=== PATIENT | male | born 1935 | race Caucasian/White ===

== ENCOUNTER 2019-07-17 16:48 | Emergency (ER) | payer MEDICARE ==
[~2019-07-17] VITALS: Ht 180.3 cm; Wt 87.3 kg
[2019-07-17 16:55] VITALS: BP 150/75; Ht 180.3 cm; Wt 87.3 kg
[2019-07-17 17:56] LABS: SPECIFIC GRAVITY 1.015 (1.005-1.020)
[2019-07-17 17:57] LABS: BACTERIA FEW /hpf (NEGATIVE); BILIRUBIN NEGATIVE (NEGATIVE); GLUCOSE NEGATIVE (NEGATIVE); KETONE NEGATIVE (NEGATIVE); NITRITE NEGATIVE (NEGATIVE); RED CELLS - URINE 0-5 /hpf (0-5); UROBILINOGEN NORMAL (NORMAL); WHITE CELLS - URINE OCC /hpf (NEGATIVE)
[2019-07-17] MEDS ORDERED: CIPRO500 MG PO (18:00)
== END 2019-07-17 18:08 | disposition home or self-care (01) ==
LOC: D.ER 16:48
PROVIDERS: Family Medicine
DX: R33.9 Retention of urine, unspecified (principal); N41.9 Inflammatory disease of prostate, unspecified; I10 Essential (primary) hypertension

== ENCOUNTER 2019-07-22 12:14 | Emergency (ER) | payer MEDICARE, MEDICAID ==
[~2019-07-22] VITALS: Ht 180.3 cm; Wt 87.3 kg
[~2019-07-22 12:14] MED LIST: CIPRO500 MG PO
[2019-07-22 12:20] VITALS: BP 131/68; Ht 180.3 cm; Wt 87.3 kg
[2019-07-22] MEDS ORDERED: HTN MED? (12:22)
[2019-07-22] MEDS ORDERED: BLOOD THINNER (12:22)
== END 2019-07-22 14:21 | disposition home or self-care (01) ==
LOC: D.ER 12:14
DX: T83.84XA Pain due to genitourinary prosthetic devices, implants and grafts, initial encounter (principal); R33.9 Retention of urine, unspecified; I10 Essential (primary) hypertension

== ENCOUNTER 2019-07-22 21:39 | Emergency (ER) | payer MEDICARE, MEDICAID ==
[~2019-07-22] VITALS: Ht 180.3 cm; Wt 81.8 kg
[~2019-07-22 21:39] MED LIST changes: +BLOOD THINNER; +HTN MED?
[2019-07-22 21:46] VITALS: Ht 180.3 cm; Wt 81.8 kg
[2019-07-22 22:58] VITALS: BP 151/74
== END 2019-07-22 22:58 | disposition home or self-care (01) ==
LOC: D.ER 21:39
DX: N41.9 Inflammatory disease of prostate, unspecified (principal); R33.9 Retention of urine, unspecified; I10 Essential (primary) hypertension

== ENCOUNTER 2019-08-06 07:46 | Day surgery (SDC) | payer MEDICARE, MEDICAID ==
[~2019-08-06] VITALS: Ht 180.3 cm; Wt 78.9 kg
[~2019-08-06 07:46] MED LIST changes: -BLOOD THINNER; -HTN MED?; +LISINOPRIL PO; +plavix PO
[2019-08-06 08:57] LABS: BASOPHILS 0.5 % (0-2); EOSINOPHILS 4.6 % (0-7); HEMATOCRIT 35.8 % (42.0-54.0); HEMOGLOBIN 11.5 g/dL (13.5-17.5); LYMPHOCYTES 25.9 % (15-50); MCH 30.6 pg (26.0-34.0); MCHC 32.1 g/dL (31.0-37.0); MCV 95.2 fL (80.0-100.0); MEAN PLATELET VOLUME 9.6 fL (7.4-10.4); MONOCYTES 7.3 % (2-11); NEUTROPHILS 61.7 % (40-80); RBC 3.76 10x6/uL (4.20-6.10); WBC 5.9 10x3/uL (4.8-10.8)
[2019-08-06 09:09] LABS: ANION GAP 10.9 mmol/L (8-16); APTT 34.5 SECONDS (22.8-39.4); CALCIUM 8.3 mg/dL (8.5-10.1); CARBON DIOXIDE 27.1 mmol/L (21.0-32.0); CREATININE - SERUM 1.3 mg/dL (0.6-1.3); INR 1.13 (0.85-1.17); PROTIME 14.5 SECONDS (11.6-15.0)
[2019-08-06 09:11] LABS: PLATELET COUNT 251 10x3/uL (130-400)
[2019-08-06 09:29] VITALS: BP 113/62; Ht 180.3 cm; Wt 78.9 kg
--- NOTE | 2019-08-06 14:01 | NUR ---
FULL LIQUID TRAY TO ROOM
--- NOTE | 2019-08-06 14:59 | OP ---
PATIENT NAME: MARTHA ALMARAZ MEDICAL RECORD: [id number] :34 LOCATION:[facility] ADMISSION DATE: SURGEON: MAL CHEATHAM MD DATE OF OPERATION: 08/06/2019 SURGEON: Mal Cheatham MD ANESTHESIA: General anesthesia by Angélica Ireland CRNA. DIAGNOSIS: Bilateral hydroureteronephrosis, probable metastatic prostate cancer. PROCEDURE: Cystoscopy, left retrograde pyelogram, left ureteral stent insertion 6-Polish x 24 cm without string attached. FINDINGS: Cystoscopy shows bilateral lateral lobe hyperplasia with a tall bladder neck. The bladder is heavily trabeculated with diverticula. No bladder tumors were seen. The left ureteral orifice was seen. I could not find the right ureteral orifice due to hematuria. The left retrograde pyelogram shows hydroureteronephrosis down to the distal ureter. No filling defects were seen. BLOOD LOSS: Minimal. CLINICAL HISTORY: This is an 83-year-old male, who presented to his family physician's office with acute urinary retention. He had a Mann catheter placed. He had a serum PSA obtained. His PSA is over 200. I asked for a CT scan of the chest, abdomen and pelvis and this shows masses in the chest and the retroperitoneum. There are enlarged lymph nodes. There are also enlarged lymph nodes in the pelvis, especially along the right external iliac. Finally, there is sclerotic area in the iliac bone on the right side, all of this is consistent with metastatic prostate cancer. He is on Plavix and he has not had a prostate biopsy. He took his Plavix dose yesterday. The CT does show bilateral hydroureteronephrosis. He comes now to have attempted bilateral ureteral stent insertion on an emergent basis. He is not allergic to any medications. He was given ampicillin and sulbactam management information systems director to the OR. DESCRIPTION OF PROCEDURE: The patient was given induction of general anesthesia. He was then placed into the lithotomy position and prepped and draped. A 21-Polish cystoscope with 30-degree lens was used for visualization. He does not have a penile urethral stricture. He does have a very obstructive prostate. Going into the bladder, because of the heavy trabeculation of the bladder, it was difficult to find the ureteral orifice. I managed to find the left ureteral orifice. An open-ended ureteral catheter was inserted into the left ureteral orifice. Diluted contrast was injected for retrograde pyelogram. This showed quite severe hydroureteronephrosis on the left side. A Sensor wire was put in through the lumen of the ureteral catheter up to the renal pelvis. The ureteral catheter was then removed entirely. A 6-Polish x 24 cm stent was then inserted over the wire. Once the stent was in correct position, the wire was withdrawn entirely. The distal end of the stent was pushed in using the pusher. Fluoroscopy revealed that the stent is in good position. I tried for a long time to find the right ureteral orifice. However, the hematuria from his Plavix use and the prostatic tumor made it extremely difficult to find the right ureteral orifice. Eventually, I emptied his bladder and abandoned any further attempts. We will wait for the weekend to intervene without him being on Plavix. That way, his Plavix will have worn off on Saturday. We can then ask OPERATIVE REPORT [id number] MARTHA ALMARAZ interventional radiology to place a right nephrostomy tube and through their a right antegrade ureteral stent to relieve the prostatic obstruction. I will also have him come back to see me at [facility] to arrange for a prostate biopsy. TRANSINT:[id number] Voice Confirmation ID: [id number] DOCUMENT ID: [id number] MAL CHEATHAM MD at 1459 CC: [id number] DICTATION DATE: 08/06/19 1303 PROTOCOL MANAGER: 08/06/19 1338 [facility] [address] [place] [address]
--- NOTE | 2019-08-06 15:30 | NUR ---
1348-FULL LIQUID TRAY TO ROOM.VSS. DENIES PAIN
--- NOTE | 2019-08-06 15:31 | NUR ---
1440-DISCHARGE CRITERIA MET. REMOVED IV WITH CATH INTACT. DISPOSED INTO SHARPS,COVERED SITE WITH GUAZE,SECURED WITH MEDIPORE TAPE/ REVIEWED POST OPERATIVE INSTRUCTIONS AND FOLLOW UP APPOINTMENT. AWAITING FOR TO TRASPORT HOME
--- NOTE | 2019-08-06 15:32 | NUR ---
1500- ARRIVED TO FRONT ENTRANCE. ESCORTED DOWN VIA W/C.
[2019-08-07] MEDS ORDERED: FLOMAX0.4 MG PO (13:59)
== END 2019-08-06 15:00 | disposition home or self-care (01) ==
LOC: D.OPS 07:46
PROVIDERS: ATTEND Urology
DX: N13.30 Unspecified hydronephrosis (principal); C61 Malignant neoplasm of prostate

== ENCOUNTER 2019-08-10 07:03 | Day surgery (SDC) | payer MEDICARE, MEDICAID ==
[~2019-08-10] VITALS: Ht 180.3 cm; Wt 80.3 kg
--- NOTE | ~2019-08-10 | HEMODYNAMI ---
PATIENT:MARTHA ALMARAZ MEDICAL RECORD: [id number] : 33 LOCATION:[facility] ADMISSION DATE: 08/10/19 Generatedon:08/10/201913:52 Patient name: MARTHA ALMARAZ Patient #: [id number] SSN: : 1935 Date of study: 08/10/2019 Page: Of Hemodynamic Procedure Report Patient Data Patient Demographics Procedure consent was obtained First Name: MARTHA Gender: Male Last Name: RUFINA : 1935 Middle Initial: MARY Age: 83 year(s) Patient #: [id number] Race: Unknown Additional ID: [id number] Contact details [address]: [address] [place] [address] State: [place] [facility] [place]: [address] Past Medical History Allergies: No known allergies Admission Admission Data Admission Date: 08/10/2019 Admission Time: 7:03 Height (in.): 71 BSA: 2 (m2) Height (cm.): 180.34 BMI: 24.69 (kg/m2) Weight (lbs.): 177 Weight (kg.): 80.29 Procedure Procedure Types Cath Procedure Peripheral Cath Diagnostic Procedure Realtime Captioner Peripheral Procedures Nephro Nephrostomy w/ Ureteral Stent Procedure Description Procedure Date Procedure Date: 08/10/2019 Procedure Start Time: 13:09 Procedure Staff Name Function Adam Hennessy MD Performing Physician Monalisa Zapata RT Blindmaker Maty Russell RN Nurse Melina Carpio RN Nurse Manuel Gandara RT Scrub Procedure Data Cath Procedure Fluoroscopy Diagnostic fluoroscopy Total fluoroscopy Time: 7.7 time: 7.7 min min Diagnostic fluoroscopy Total fluoroscopy dose: 168 dose: 168 mGy mGy Contrast Material Contrast Material Type Amount (ml) Isovue 300 40 Procedure Medications Medication Administration Route Dosage unlisted medication I.V.P.B 1 g unlisted medication ml Heparin Flush Bag 1 bags (1000units/500ml NS) Lidocaine 1% 20 Hemodynamics Rest BSA: 2 (m2) O2 Consumption: Estimated: 234.97 (ml/min) O2 Consumption indexed: Estimated:117.48 (ml/min/m) Heart Rate: 81 (bpm) Snapshots Pre Cath Intra NCS Post Cath Vital Signs Time Heart Resp SPO2 etCO2 NIBP (mmHg) Rhythm Pain Sedation Rate (ipm) (%) (mmHg) Status Level (bpm) 12:52:23 77 15 100 4.5 170/85(128) NSR 0 (11) 10(A) , No pain 12:56:45 77 14 100 27.1 161/87(126) NSR 0 (11) 10(A) , No pain 13:01:07 75 14 100 27.2 157/82(130) NSR 0 (11) 10(A) , No pain 13:05:29 76 16 100 1.5 144/79(112) NSR 0 (11) 10(A) , No pain 13:09:45 75 17 100 16.6 139/77(109) NSR 0 (11) 10(A) , No pain 13:13:57 71 9 98 0 112/70(90) NSR 0 (11) 10(A) , No pain 13:18:05 70 6 99 12.8 105/64(81) NSR 0 (11) 10(A) , No pain 13:22:09 77 12 99 24.9 110/71(87) NSR 0 (11) 10(A) , No pain 13:26:57 83 12 99 25.6 131/84(99) NSR 0 (11) 10(A) , No pain 13:31:54 85 14 99 26.4 142/87(114) NSR 0 (11) 10(A) , No pain 13:36:06 76 15 99 18.8 143/92(115) NSR 0 (11) 10(A) , No pain 13:40:18 78 13 99 27.9 154/92(119) NSR 0 (11) 10(A) , No pain 13:44:37 81 12 99 21.9 140/81(107) NSR 0 (11) 10(A) , No pain 13:48:50 74 13 99 23.4 144/84(114) NSR 0 (11) 10(A) , No pain Medications Time Medication Route Dose Verified Delivered Reason Notes Effe ctiveness by by 12:57:32 CEFEPINE I.V.P.B 1 g Adam Rutledge Per Yvonne Hennessy RN physician 13:45:41 isovue-300 ml Adam Adam used for Minoo Hennessy MD procedure 13:46:59 Heparin Flush 1 Adam Medina used for Bag bags Minoo Hennessy MD procedure (1000units/500ml NS) 13:47:12 Lidocaine 1% 20ml Adam Medina vial Minoo Hennessy MD MD Procedure Log Time Note 12:20:13 Patient Height : 71 inches 12:20:18 Patient Weight : 177 lbs 12:20:47 Time tracking: Regular hours (M-F 7:00 - 5:00) 12:21:05 Plan of Care:Hemodynamics will remain stable., Cardiac rhythm will remain stable., Comfort level will be maintained., Respiratory function will remain adequate., Patient/ family verbilizes understanding of procedure., Procedure tolerated without complication., Recovers from procedure without complications.. 12:21:13 Patient received from Outpatients to IR Alert and oriented. Tansferred to table in Prone position. 12:21:16 Signed procedure consent form obtained from patient. 12:21:26 H&P Date Dictated: 08/10/2019 Within 30 days and on chart., H&P Addendum completed by physician on day of procedure. (MUST COMPLETE FOR ALL OUTPATIENTS). 12:21:31 Pre-procedure instructions explained to patient. 12:21:31 Pre-op teaching completed and patient verbalized understanding. 12:21:35 Family unavailable. 12:21:37 Patient NPO since Midnight. 12:21:41 Is the patient allergic to Iodine/contrast media? No. 12:21:52 Patient allergic to No known allergies 12:22:11 - 12:22:39 ----Pre-sedation anethsthesia assessment.----see anesthesia notes for monitoring of patient during procedure 12:23:06 - 12:23:10 Use device set IR Diagnostic 12:23:11 Tegaderm 4 x 4 (1626W) opened to sterile field. 12:23:12 Sterile Angiographic Pack opened to sterile field. 12:23:13 Bag Decanter (2002S) opened to sterile field. 12:23:37 KIT, INTRODUCER ACCUSTICK II W/C ([id number]) opened to sterile field. 12:23:38 CHIBA 22 X 15 needle opened to sterile field. 12:24:27 - 12:51:04 Vital chart was started 12:51:37 ECG and BP/O2 sat monitors applied to patient. 12:51:39 Baseline sample Acquired. 12:51:43 Full Disclosure recording started 12:51:45 - 12:56:16 Patient diabetic? No. 12:56:46 Left Renal was prepped with chlora-prep and draped in sterile fashion. 12:57:32 CEFEPINE 1 g I.V.P.B was administered by Maty Russell RN; Per physician; Verbal order read back and verified. 13:08:38 Physician arrived 13:08:40 --------ALL STOP TIME OUT------ 13:08:41 Final Timeout: patient, procedure, and site verified with staff and physician. All members of the team are in agreement. 13:09:13 Procedure started. 13:09:21 Local anesthetic to Left Renal area with Lidocaine 1% by Adam Hennessy MD.INITIAL ACCESS ONLY 13:16:12 NITINOL .018 80cm wire ([id number]) opened to sterile field. 13:22:02 GLIDE WIRE Angled Super Stiff 180cm (NA2944) opened to sterile field. 13:22:03 GLIDE CATHETER 5FR ANGLED 65cm (CG507) opened to sterile field. 13:23:35 AMPLATZ Super stiff 180cm wire ([id number]) opened to sterile field. 13:34:36 BAG, DRAINAGE EMPTY 600ML W/KRISTAL (TRR989) opened to sterile field. 13:34:37 STOPCOCK 3-Way Large Bore ([id number]) opened to sterile field. 13:35:04 Abscession 8Fr drainage catheter ([id number]) opened to sterile field. 13:35:42 Blissfield Sci 8FR.X 24CM Ureteral Stent ([id number]) opened to sterile field. 13:41:36 Procedure ended.(Physican Out) 13:42:24 Fluoroscopy time 07.70 minutes. 13:42:34 Fluoroscopy dose: 168 mGy 13:42:34 Flurop Dose total: 168 13:42:48 Contrast amount:Isovue 300 40ml. 13:44:10 Procedure and supply charges have been captured, reviewed, submitted an d are correct. 13:45:41 isovue-300 ml was administered by Adam Hennessy MD; used for procedure; Verbal order read back and verified. 13:46:59 Heparin Flush Bag (1000units/500ml NS) 1 bags was administered by Adam Hennessy MD; used for procedure; Verbal order read back and verified. 13:47:12 Lidocaine 1% 20ml vial was administered by Adam Hennessy MD; ; Verbal order read back and verified. 13:52:08 Report given to Outpatients. 13:52:31 Vital chart was stopped Device Usage Item Name Manufacture Quantity Catalog Hospital Part Current Minima l Lot# / Number Charge Number Stock Stock Serial# Code Tegaderm 4 x 3M 1 [id number] 5 4 (1626W) Sterile Cardinal 1 [id number] 016522 822189 5 Angiographic Health Pack Bag Decanter Microtek 1 748979 19658 132880 5 (2002S) Medical Inc. KIT, [place] 1 [id number] 636147 468114 688841 5 INTRODUCER Scientific ACCUSTICK II W/C ([id number]) CHIBA 22 X [facility] 1 K88241 532607 766651 5 [id number] 15 needle NITINOL .018 Medtronic 1 [id number] 904285 244014 5 80cm wire ([id number]) GLIDE WIRE Terumo 1 LY7481 980076 712826 5 Angled Super Stiff 180cm (NB3649) GLIDE Terumo 1 CG507 972410 150447 5 CATHETER 5FR ANGLED 65cm (CG507) AMPLATZ [place] 1 [id number] 980383 447057 943792 5 Super stiff Scientific 180cm wire ([id number]) BAG, [facility] Medical 1 JFD781 710781 660098 026426 5 DRAINAGE EMPTY 600ML W/KRISTAL (GLL991) STOPCOCK [facility] 1 T45799 840917 6057 204321 5 [id number] 3-Way Large Bore (K70053) Abscession Angiodynamics 1 [id number] 562444 905098 592900 5 8Fr drainage catheter ([id number]) Blissfield Sci [place] 1 [id number] 079930 895508 463029 5 8FR.X 24CM Scientific Ureteral Stent ([id number]) Signature Audit [place] Stage Time Signature Unsigned Intra-Procedure 08/10/2019 Monalisa Zapata 1:52:27 PM RT(R) [id number] [place] [address]
[~2019-08-10 07:03] MED LIST changes: +FLOMAX0.4 MG PO
[2019-08-10 07:41] LABS: BASOPHILS 0.3 % (0-2); EOSINOPHILS 3.7 % (0-7); HEMATOCRIT 38.7 % (42.0-54.0); HEMOGLOBIN 12.4 g/dL (13.5-17.5); LYMPHOCYTES 23.3 % (15-50); MCH 30.6 pg (26.0-34.0); MCV 95.6 fL (80.0-100.0); MEAN PLATELET VOLUME 9.4 fL (7.4-10.4); MONOCYTES 7.1 % (2-11); NEUTROPHILS 65.6 % (40-80); PLATELET COUNT 230 10x3/uL (130-400); RBC 4.05 10x6/uL (4.20-6.10); RDW 13.9 % (11.5-14.5); WBC 5.9 10x3/uL (4.8-10.8)
[2019-08-10 07:48] LABS: APTT 29.5 SECONDS (22.8-39.4); INR 1.06 (0.85-1.17); PROTIME 13.8 SECONDS (11.6-15.0)
[2019-08-10 07:49] LABS: CALCIUM 8.5 mg/dL (8.5-10.1); CARBON DIOXIDE 27.2 mmol/L (21.0-32.0); CREATININE - SERUM 1.2 mg/dL (0.6-1.3); POTASSIUM - SERUM 4.2 mmol/L (3.5-5.1)
[2019-08-10 08:46] VITALS: BP 121/72; Ht 180.3 cm; Wt 80.3 kg
--- NOTE | 2019-08-10 14:40 | NUR ---
CALL PLACED TO DR CHEATHAM REGARDING CONCERN ABOUT PATIENT AND SPOUSE BEING ABLE TO CARE FOR ROWE AND NEPHROSTOMY TUBE AT HOME, REPORTED TO DR CHEATHAM THAT PATIENT CAME IN TO OUTPATIENT THIS MORNING WITH ROWE BAG OVERFUL AND PATIENT REPORTED THAT HE HADN'T EMPTIED ROWE BAG ALL WEEKEND. SUGGESTED TO DR CHEATHAM THAT HOME HEALTH MAY BE NEEDED. DR CHEATHAM STATES "I CAN HANDLE THAT WHEN PATIENT COMES TO SEE ME THIS SATURDAY. HE CAN MAKE IT UNTIL THEN."
--- NOTE | 2019-08-10 16:50 | NUR ---
SPOUSE ARRIVES AND DEMONSTRATION AND EDUCATION ARE GIVEN REGARDING ROWE CARE AND PERC NEPH TUBE CARE. PATIENT ARRIVED TODAY TO DEPARTMENT WITH ROWE CATH BUT HAD NOT EMPTIED ROWE CATH ALL WEEKEND SO FURTHER EDUCATION WAS IN ORDER. WRITTEN EDUCATION AND DEMONSTRATION GIVEN REGARDING ROWE CATH CARE. DEMONSTRATED TO SPOUSE HOW TO FLUSH PERC NEPH TUBE AND INSTRUCTIONS GIVEN TO FLUSH TWICE DAILY. WRITTEN INSTRUCTIONS REVIEWED AND GIVEN REGARDING RETURNING ON Saturday08/12/19 FOR STENT PROCEDURE HERE AT [facility]. SPOUSE EXPRESSES UNDERSTANDING OF ALL INSTRUCTIONS. LEFT FOREARM PIV DC'D WITH TIP INTACT. PATIENT DRESSING IN PERSONAL CLOTHING
--- NOTE | 2019-08-10 17:32 | NUR ---
DISCHARGED HOME VIA WHEELCHAIR TO PRIVATE VEHICLE WITH SPOUSE
--- NOTE | 2019-08-11 17:59 | OP ---
PATIENT NAME: MARTHA ALMARAZ MEDICAL RECORD: [id number] :33 LOCATION:.[facility] ADMISSION DATE: SURGEON: MAL CHEATHAM MD DATE OF OPERATION: 08/10/2019 SURGEON: Mal Cheatham MD ANESTHESIA: TIVA by Milady Krishnamurthy CRNA. DIAGNOSES: Elevated PSA, metastatic cancer, urinary retention. PROCEDURE: Transrectal ultrasound and prostate biopsy. FINDINGS: On transrectal ultrasound, 73 gram irregular nodular prostate with extensive hypoechoic areas throughout. On digital rectal examination, he has a hard nodular fixed prostate. CLINICAL HISTORY: This is an 83-year-old male, who was found to be in urinary retention. He had a Mann catheter placed by his primary care doctor. His PSA is elevated at 205. A CT scan of the chest, abdomen and pelvis shows a left pulmonary nodule 1.5 cm in size which may be metastatic disease. There is also extensive retroperitoneal and retrohilar lymphadenopathy. This is causing bilateral hydroureteronephrosis. He is on Plavix for previous stroke. Last week, I managed to place a left ureteral stent. He now comes today to have a right ureteral stent placed by interventional radiology in an antegrade fashion through a nephrostomy tube. I will also be performing a prostate biopsy today. We need tissue diagnosis for him to get treatment of his extensive metastatic prostate cancer. He was given Ancef cardiopulmonary supervisor to the OR. DESCRIPTION OF PROCEDURE: The patient was given IV sedation. He was placed in the lithotomy position. Digital rectal examination was done and I found a hard nodular fixed prostate very suggestive of prostate cancer. The transrectal ultrasound probe was then introduced. It was very difficult to identify the outline of the prostate as it is extremely hypoechoic throughout. We estimate of the prostate size at 73 grams. Sextant with biopsies were obtained with at least 3 specimens from each sextant. Once all the specimens were obtained, then the patient's Mann catheter was replaced with a new one. The patient today will later go to interventional radiology to have a right nephrostomy tube inserted in through the nephrostomy tube and antegrade right ureteral stent inserted. TRANSINT:[id number] Voice Confirmation ID: [id number] DOCUMENT ID: [id number] MAL CHEATHAM MD at 7405 CC: [id number] DICTATION DATE: 08/10/19 2505 [place] LAP MACHINE TENDER: 08/10/19 1407 [facility] [place] 08/10/19 [place] [id number] [place] [address]
== END 2019-08-10 17:32 | disposition home or self-care (01) ==
LOC: D.OPS 07:03 → EDSTATUS 09:30 → D.OPS 09:30 → D.RAD 13:00 → D.OPS 17:32
PROVIDERS: General Practice; ATTEND Urology
DX: N13.30 Unspecified hydronephrosis (principal); C61 Malignant neoplasm of prostate; R97.20 Elevated prostate specific antigen [PSA]; R33.9 Retention of urine, unspecified

== ENCOUNTER 2019-08-12 09:14 | Outpatient (CLI) | payer MEDICARE, MEDICAID ==
[~2019-08-12] VITALS: Ht 180.3 cm; Wt 78.2 kg
--- NOTE | ~2019-08-12 | HEMODYNAMI ---
PATIENT:MARTHA ALMARAZ MEDICAL RECORD: [id number] : 33 LOCATION:[facility] ADMISSION DATE: 08/12/19 Generatedon:08/12/201912:36 Patient name: MARTHA ALMARAZ Patient #: [id number] SSN: : 1935 Date of study: 08/12/2019 Page: Of Hemodynamic Procedure Report Patient Data Patient Demographics Procedure consent was obtained First Name: MARTHA Gender: Male Last Name: RUFINA : 1935 [facility] Initial: MARY Age: 83 year(s) Patient #: [id number] Race: Unknown Additional ID: [id number] Contact details Address: [address] [place] [address] State: [place] City: [facility] Zip code: [address] Past Medical History Allergies: No known allergies Admission Admission Data Admission Date: 08/12/2019 Admission Time: 9:14 Height (in.): 71 BSA: 1.98 (m2) Height (cm.): 180.34 BMI: 23.99 (kg/m2) Weight (lbs.): 172 Weight (kg.): 78.02 Procedure Procedure Types Cath Procedure Peripheral Cath Diagnostic Procedure Graduate Teaching Associate Peripheral Procedures Nephro Nephrostogram Thru Existing Procedure Description Procedure Date Procedure Date: 08/12/2019 Procedure Start Time: 12:20 Procedure Staff Name Function Adam Hennessy MD Performing Physician Monalisa Zapata RT Gang Miner Melina Carpio RN Nurse Procedure Data Cath Procedure Fluoroscopy Diagnostic fluoroscopy Total fluoroscopy Time: 1.4 time: 1.4 min min Diagnostic fluoroscopy Total fluoroscopy dose: 68 dose: 68 mGy mGy Contrast Material Contrast Material Type Amount (ml) Isovue 300 10 Hemodynamics Rest BSA: 1.98 (m2) O2 Consumption: Estimated: 238.74 (ml/min) O2 Consumption indexed : Estimated:120.58 (ml/min/m) Heart Rate: 89 (bpm) Snapshots Pre Cath Intra NCS Post Cath Vital Signs Time Heart Resp SPO2 etCO2 NIBP (mmHg) Rhythm Pain Sedation Rate (ipm) (%) (mmHg) Status Level (bpm) 12:20:01 91 20 97 0 131/79(105) NSR 0 (11) 10(A) , No pain 12:24:12 89 25 0 128/78(102) NSR 0 (11) 10(A) , No pain 12:28:26 85 17 0 134/74(98) NSR 0 (11) 10(A) , No pain 12:32:26 0 No Cuff NSR 0 (11) 10(A) , No pain Procedure Log Time Note 10:57:56 Patient Height : 71 inches 10:58:00 Patient Weight : 172 lbs 10:58:22 Use device set IR Diagnostic 10:58:24 Sterile Angiographic Pack opened to sterile field. 10:58:25 Bag Decanter (2002S) opened to sterile field. 10:58:26 Tegaderm 4 x 4 (1626W) opened to sterile field. 12:02:44 - 12:02:47 Time tracking: Regular hours (M-F 7:00 - 5:00) 12:03:10 Plan of Care:Hemodynamics will remain stable., Cardiac rhythm will remain stable., Comfort level will be maintained., Respiratory function will remain adequate., Patient/ family verbilizes understanding of procedure., Procedure tolerated without complication., Recovers from procedure without complications.. 12:03:18 Patient received from Outpatients to IR Alert and oriented. Tansferred to table in Prone position. 12:03:21 Signed procedure consent form obtained from patient. 12:03:28 H&P Date Dictated: 08/12/2019 Within 30 days and on chart., H&P Addendum completed by physician on day of procedure. (MUST COMPLETE FOR ALL OUTPATIENTS). 12:03:30 Pre-procedure instructions explained to patient. 12:03:31 Pre-op teaching completed and patient verbalized understanding. 12:03:33 Family unavailable. 12:03:35 Patient NPO since Midnight. 12:03:45 Patient allergic to No known allergies 12:03:48 - 12:18:56 ECG and BP/O2 sat monitors applied to patient. 12:18:57 Vital chart was started 12:18:59 Baseline sample Acquired. 12:19: Full Disclosure recording started 12::02 - 12::18 Right Renal was prepped with chlora-prep and draped in sterile fashion. 12::22 - 12::25 Physician arrived 12:: --------ALL STOP TIME OUT------ ::28 Final Timeout: patient, procedure, and site verified with staff and physician. All members of the team are in agreement. ::37 Fire Safety Assessment: A--An alcohol-based skin anteseptic being used preoperatively. 12:20:13 Procedure started. 12:32:59 nephrostomy tube removed 12:33:04 Procedure ended.(Physican Out) ::26 Fluoroscopy time 01.40 minutes. :33:31 Fluoroscopy dose: 68 mGy 12:33:31 Flurop Dose total: 68 12:33:37 Contrast amount:Isovue 300 10ml. 12:33:53 Procedure and supply charges have been captured, reviewed, submitted an d are correct. 12:36:17 Report given to Outpatients. 12:36:49 Vital chart was stopped Device Usage Item Name Manufacture Quantity Catalog Hospital Part Current Minimal Lot# / Number Charge Number Stock Stock Serial# Code Sterile Cardinal 1 [id number] 5 Angiographic Health Pack Bag Decanter Microtek 1 [id number] 34483 [id number] 5 () 1DayLater Inc. Tegaderm 4 x 3M 1 1626W [id number] 951584 [id number] 5 4 (1626W) Signature Audit [place] Stage Time Signature Unsigned Intra-Procedure 08/12/2019 Monalisa Zapata 12:36:45 PM RT(R) [facility] [address] [place] [address]
[2019-08-12 09:35] LABS: BASOPHILS 0.2 % (0-2); EOSINOPHILS 4.2 % (0-7); HEMATOCRIT 38.7 % (42.0-54.0); HEMOGLOBIN 12.5 g/dL (13.5-17.5); IMMATURE GRANULOCYTES 0.2 % (0-5); MCHC 32.3 g/dL (31.0-37.0); MEAN PLATELET VOLUME 9.3 fL (7.4-10.4); MONOCYTES 7.8 % (2-11); NEUTROPHILS 67.6 % (40-80); PLATELET COUNT 204 10x3/uL (130-400); RBC 4.03 10x6/uL (4.20-6.10); WBC 6.2 10x3/uL (4.8-10.8)
[2019-08-12 09:48] LABS: APTT 28.7 SECONDS (22.8-39.4); INR 1.05 (0.85-1.17); PROTIME 13.6 SECONDS (11.6-15.0)
[2019-08-12 09:50] LABS: CALC OSMOLALITY 278 mosm/kg (275-300); CALCIUM 8.6 mg/dL (8.5-10.1); CARBON DIOXIDE 28.1 mmol/L (21.0-32.0); CHLORIDE - SERUM 102 mmol/L (98-107); GLUCOSE 113 mg/dL (74-106); SODIUM 139 mmol/L (136-145); UREA NITROGEN 12 mg/dL (7-18); eGFR NON AFRICAN AMERICAN 76 mL/min (90-120)
[2019-08-12 10:25] VITALS: BP 114/67; Ht 180.3 cm; Wt 78.2 kg
--- NOTE | 2019-08-12 13:29 | NUR ---
1300-NO SEDATION. REMOVED IV WITH CATH INTACT,DISPOSED INTO SHARPS.COVERED WITH GUAZE AND MEDIPORE TAPE.
--- NOTE | 2019-08-12 13:30 | NUR ---
1310-ASSISTED PT TO DRESS. ROWE PATENT DRAINING EVANS RED URINE. ABLE TO CARE FOR ROWE, HAS HAD FOR MORE THAN 2 WEEKS. REVIEWED POST OPERATIVE INSTRUCTIONS.
--- NOTE | 2019-08-12 13:31 | NUR ---
1315-ESFCORTED OUT VIA W/C WITH SPOUSE AWAITING TO DRIVE HOME
== END 2019-08-12 13:15 | disposition home or self-care (01) ==
LOC: D.SP 09:14 → D.RAD 13:00 → D.SP 13:00
PROVIDERS: ATTEND General Practice
DX: C61 Malignant neoplasm of prostate (principal); N13.5 Crossing vessel and stricture of ureter without hydronephrosis

== ENCOUNTER → 2019-08-14 08:29 | Outpatient (CLI) | payer MEDICARE, MEDICAID ==
[2019-08-12 10:25] VITALS: BMI 24.0
== END | disposition home or self-care (01) ==
LOC: D.NM 08:29
PROVIDERS: ATTEND Urology
DX: C61 Malignant neoplasm of prostate (principal)

== ENCOUNTER → 2019-09-05 17:00 | Outpatient (CLI) | payer MEDICARE, MEDICAID ==
[2019-08-12 10:25] VITALS: BMI 24.0
[2019-09-05 19:25] LABS: BACTERIA MANY /hpf (NEGATIVE); BILIRUBIN NEGATIVE (NEGATIVE); EPITHELIAL CELLS OCC /hpf (0-5); GLUCOSE NEGATIVE (NEGATIVE); KETONE NEGATIVE (NEGATIVE); NITRITE NEGATIVE (NEGATIVE); UROBILINOGEN NORMAL (NORMAL); WHITE CELLS - URINE >50 /hpf (NEGATIVE)
== END | disposition home or self-care (01) ==
LOC: D.LABREF 17:00
PROVIDERS: ATTEND Urology
DX: N39.0 Urinary tract infection, site not specified (principal)

== ENCOUNTER → 2019-09-10 11:41 | Outpatient (CLI) | payer MEDICARE, MEDICAID ==
[2019-08-12 10:25] VITALS: BMI 24.0
[2019-09-10 14:45] LABS: BACTERIA FEW /hpf (NEGATIVE); EPITHELIAL CELLS RARE /hpf (0-5); RED CELLS - URINE >50 /hpf (0-5)
== END | disposition home or self-care (01) ==
LOC: D.LABREF 11:41
PROVIDERS: ATTEND Urology
DX: C61 Malignant neoplasm of prostate (principal); N39.0 Urinary tract infection, site not specified

== ENCOUNTER 2019-11-04 08:00 | Outpatient (CLI) | payer MEDICARE, MEDICAID ==
[2019-08-12 10:25] VITALS: BMI 24.0
[2019-11-05 12:50] LABS: BILIRUBIN NEGATIVE (NEGATIVE); GLUCOSE NEGATIVE (NEGATIVE); KETONE NEGATIVE (NEGATIVE); NITRITE POSITIVE (NEGATIVE); SPECIFIC GRAVITY 1.015 (1.005-1.020); UROBILINOGEN NORMAL (NORMAL); WHITE CELLS - URINE 25-50 /hpf (NEGATIVE)
[2019-11-05 12:51] LABS: AMORPHOUS SEDIMENT <1+ /lpf (NONE SEEN); BACTERIA MANY /hpf (NEGATIVE); EPITHELIAL CELLS 0-5 /hpf (0-5); GRANULAR CAST OCC /lpf (NONE SEEN); RED CELLS - URINE 25-50 /hpf (0-5)
== END 2019-11-04 08:01 | disposition home or self-care (01) ==
LOC: D.LABREF 08:00
PROVIDERS: ATTEND Urology
DX: N39.0 Urinary tract infection, site not specified (principal)

== ENCOUNTER 2019-12-10 06:10 | Day surgery (SDC) | payer MEDICARE, MEDICAID ==
[2019-12-07 15:09] LABS: BASOPHILS 0.3 % (0-2); EOSINOPHILS 3.9 % (0-7); HEMATOCRIT 32.5 % (42.0-54.0); HEMOGLOBIN 10.5 g/dL (13.5-17.5); LYMPHOCYTES 29.6 % (15-50); MCH 29.3 pg (26.0-34.0); MCHC 32.3 g/dL (31.0-37.0); MCV 90.8 fL (80.0-100.0); MEAN PLATELET VOLUME 8.6 fL (7.4-10.4); MONOCYTES 5.9 % (2-11); NEUTROPHILS 60.3 % (40-80); PLATELET COUNT 313 10x3/uL (130-400); RBC 3.58 10x6/uL (4.20-6.10); RDW 15.6 % (11.5-14.5); WBC 7.2 10x3/uL (4.8-10.8)
[2019-12-07 15:23] LABS: APTT 31.6 SECONDS (22.8-39.4); INR 1.02 (0.85-1.17); PROTIME 13.3 SECONDS (11.6-15.0)
[2019-12-07 15:29] LABS: ANION GAP 13.5 mmol/L (8-16); CALCIUM 7.4 mg/dL (8.5-10.1); CARBON DIOXIDE 24.9 mmol/L (21.0-32.0); CREATININE - SERUM 1.5 mg/dL (0.6-1.3); POTASSIUM - SERUM 3.4 mmol/L (3.5-5.1)
[~2019-12-10] VITALS: Ht 175.3 cm; Wt 72.1 kg
[~2019-12-10 06:10] MED LIST changes: +XTANDI40 MG PO
[2019-12-10 06:34] VITALS: BP 109/67; Ht 175.3 cm; Wt 72.1 kg
--- NOTE | 2019-12-10 09:29 | NUR ---
SCOPE PATCH BEHIND RT EAR ON ADMIT
--- NOTE | 2019-12-10 10:40 | NUR ---
PT ABLE TO URINATE 150ML PINK TINGED URINE. PT DC INSTRUCTIONS REVIEWED AT THIS TIME. PT AND FAMILY VERBALIZE UNDERSTANDING. IV REMOVED AT THIS TIME, INTACT, NO REDNESS OR SWELLING NOTED AT SITE.
--- NOTE | 2019-12-10 10:45 | NUR ---
PT LEAVING OPS AT THIS TIME VIA EC, NAD NOTED.
--- NOTE | 2019-12-11 12:55 | OP ---
PATIENT NAME: MARTHA ALMARAZ MEDICAL RECORD: [id number] :33 LOCATION:D.OPS ADMISSION DATE: SURGEON: MAL CHEATHAM MD DATE OF OPERATION: 12/10/2019 SURGEON: Mal Cheatham MD ANESTHESIA: TIVA by Nigel Diaz CRNA. DIAGNOSES: Metastatic prostate cancer with bilateral hydronephrosis, urinary tract infection. PROCEDURES: Cystoscopy, removal of old ureteral stents, bilateral retrograde pyelograms, exchange with new 6-Uzbek x 24 cm ureteral stents bilaterally with no strings attached. FINDINGS: Heavily trabeculated bladder. On retrograde pyelograms, there are bilateral distal ureteral strictures. No bladder tumors are seen. BLOOD LOSS: None. CLINICAL HISTORY: This is an 84-year-old male with metastatic prostate cancer. 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 He has had bilateral ureteral stents for some time. Recently, he developed a urinary tract infection for which we have started him on the appropriate antibiotics. He comes now to have the stents changed as the current stents are contaminated. He was given gentamicin IV railroad conductor to the OR. DESCRIPTION OF PROCEDURE: The patient was given IV sedation. He was placed into lithotomy position and prepped and draped. Cystoscopy was performed using a 21-Uzbek scope with 30-degree lens. The prostate is not obstructive as he has had an UroLift procedure done. He was previously in urinary retention. Grasping forceps were used and the old stents were removed entirely. We then introduced a 5-Uzbek open-ended ureteral catheter into the left ureteral orifice. Diluted contrast was used for a retrograde pyelogram. This showed stricturing of the distal ureter. A Sensor wire was passed through the lumen of the ureteral catheter into the renal pelvis. Once the wire was in position, the ureteral catheter was removed entirely. Over the wire, we inserted the 6-Uzbek x 24-cm stent. Once the stent was in correct position, the wire was withdrawn entirely. The distal end of the stent was pushed into the bladder using a pusher. The same procedure was repeated on the right side. At the end of the procedure, the bladder was emptied through the cystoscope sheath and the scope was removed. I will see the patient in followup in 2-3 weeks at [facility] to check to see whether the infection is completely cleared. NTS:[id number] Voice Confirmation ID: [id number] DOCUMENT ID: [id number] OPERATIVE REPORT [id number] MARTHA ALMARAZ ROBERT S MD at 1255 CC: [id number] DICTATION DATE: 12/10/19908 SUPERVISOR NET MAKING: 12/10/191906 [facility] 12/10/19 [place] [id number] [place] [id number]
== END 2019-12-10 10:45 | disposition home or self-care (01) ==
LOC: D.OPS 06:10 → D.PAN 08:15 → D.OPS 08:15
PROVIDERS: Anesthesiology; ATTEND Urology
DX: C61 Malignant neoplasm of prostate (principal); N13.30 Unspecified hydronephrosis; N39.0 Urinary tract infection, site not specified; R33.8 Other retention of urine; R15.9 Full incontinence of feces

== ENCOUNTER 2020-07-09 21:31 | Inpatient (IN) | payer MEDICARE, MEDICAID ==
[~2020-07-09] VITALS: Ht 180.3 cm; Wt 60.5 kg
[~2020-07-09 21:31] MED LIST changes: +DIFLUCAN150 MG PO; +PROTONIX40 MG PO
[2020-07-09 22:00] LABS: BASOPHILS 0.1 % (0-2); EOSINOPHILS 0.6 % (0-7); HEMATOCRIT 32.6 % (42.0-54.0); HEMOGLOBIN 10.9 g/dL (13.5-17.5); IMMATURE GRANULOCYTES 0.4 % (0-5); LYMPHOCYTE ABS# 2.65 10x3/uL (1.32-3.57); LYMPHOCYTES 26.8 % (15-50); MCH 30.4 pg (26.0-34.0); MCHC 33.4 g/dL (31.0-37.0); MCV 90.8 fL (80.0-100.0); MEAN PLATELET VOLUME 8.8 fL (7.4-10.4); MONOCYTES 4.2 % (2-11); NEUTROPHIL ABS# 6.71 10x3/uL (1.78-5.38); NEUTROPHILS 67.9 % (40-80); PLATELET COUNT 284 10x3/uL (130-400); RBC 3.59 10x6/uL (4.20-6.10); RDW 16.1 % (11.5-14.5); WBC 9.9 10x3/uL (4.8-10.8)
[2020-07-09 22:08] LABS: INR 1.06 (0.85-1.17); PROTIME 12.7 SECONDS (11.6-15.0)
[2020-07-09 22:09] LABS: APTT 26.6 SECONDS (22.8-39.4)
[2020-07-09 22:25] LABS: ALBUMIN 2.3 g/dL (3.4-5.0); ALKALINE PHOSPHATASE 119 U/L (30-120); ALT (SGPT) 14 U/L (10-68); CALC OSMOLALITY 271 mosm/kg (275-300); CALCIUM 8.3 mg/dL (8.5-10.1); CHLORIDE - SERUM 98 mmol/L (98-107); CREATINE KINASE 23 UL (21-232); CREATININE - SERUM 1.6 mg/dL (0.6-1.3); GLUCOSE 175 mg/dL (74-106); MAGNESIUM - SERUM 2.4 mg/dL (1.8-2.4); POTASSIUM - SERUM 2.9 mmol/L (3.5-5.1); PRO BNP 374 pg/mL (0-450); PROTEIN - SERUM 6.8 g/dL (6.4-8.2); SODIUM 133 mmol/L (136-145); THYROID STIMULATING HORMONE 3.12 uIU/mL (0.36-3.74); TROPONIN-I < 0.017 ng/mL (0.000-0.060); UREA NITROGEN 17 mg/dL (7-18); eGFR NON AFRICAN AMERICAN 44 mL/min (90-120)
[2020-07-10 00:30] VITALS: BP 103/48
[2020-07-10 03:03] VITALS: BMI 19.4
[2020-07-10 03:12] LABS: CKMB 0.1 U/L (0.0-3.6); CREATINE KINASE 24 UL (21-232)
[2020-07-10 03:15] LABS: TROPONIN-I < 0.017 ng/mL (0.000-0.060)
--- NOTE | 2020-07-10 03:18 | NUR ---
PT LAYING SUPINE IN BED. PT AAOX4, IV INTACT IN RIGH AC WITH NS @ 125. SKIN TEAR PRESENT ON LEFT ELBOW, MEDIPLEX APPLIED. BRUISING AND SEVERE PAIN IN LEFT HIP. REDDENED BUMP ON LEFT POSTERIOR HEAD. PT ALSO HAS AN INCISION ON BACK FROM I&D DONE LAST MONTH. NON SLIP SOCKS APPLIED, INCOTINENCE BREIF CHANGED, PT REFUSED GOWN AT THIS TIME. TELEMETRY APPLIED, PT IS NSR AT 82BPM. BED IN LOWEST POSITION, AT BEDSIDE
[2020-07-10 04:34] VITALS: BP 110/60
[2020-07-10 05:05] LABS: BASOPHILS 0 % (0-2); EOSINOPHILS 0 % (0-7); HEMATOCRIT 29.9 % (42.0-54.0); IMMATURE GRANULOCYTES 0.3 % (0-5); LYMPHOCYTE ABS# 0.78 10x3/uL (1.32-3.57); LYMPHOCYTES 8.5 % (15-50); MCH 30.1 pg (26.0-34.0); MCHC 33.4 g/dL (31.0-37.0); MCV 90.1 fL (80.0-100.0); MEAN PLATELET VOLUME 9.1 fL (7.4-10.4); MONOCYTES 5.4 % (2-11); NEUTROPHIL ABS# 7.92 10x3/uL (1.78-5.38); NEUTROPHILS 85.8 % (40-80); PLATELET COUNT 256 10x3/uL (130-400); RBC 3.32 10x6/uL (4.20-6.10); RDW 16.1 % (11.5-14.5); RETIC 0.98 % (0.45-2.28); WBC 9.2 10x3/uL (4.8-10.8)
[2020-07-10 05:32] LABS: % SATURATION 31 % (15-55); IRON 52 ug/dl (35-150); TOTAL IRON BIND CAPACITY 165 ug/dl (260-445); UNSAT IRON BIND CAPACITY 113 ug/dl (150-375)
[2020-07-10 05:33] LABS: ALBUMIN 2.1 g/dL (3.4-5.0); ALKALINE PHOSPHATASE 109 U/L (30-120); ALT (SGPT) 15 U/L (10-68); BILIRUBIN - TOTAL 0.31 mg/dL (0.2-1.3); CALC OSMOLALITY 271 mosm/kg (275-300); CALCIUM 7.6 mg/dL (8.5-10.1); CARBON DIOXIDE 27.1 mmol/L (21.0-32.0); CHLORIDE - SERUM 100 mmol/L (98-107); CKMB 0.2 U/L (0.0-3.6); CREATINE KINASE 33 UL (21-232); CREATININE - SERUM 1.5 mg/dL (0.6-1.3); GLUCOSE 150 mg/dL (74-106); MAGNESIUM - SERUM 2.1 mg/dL (1.8-2.4); PROTEIN - SERUM 6.4 g/dL (6.4-8.2); SODIUM 134 mmol/L (136-145); UREA NITROGEN 15 mg/dL (7-18); eGFR NON AFRICAN AMERICAN 47 mL/min (90-120)
[2020-07-10 05:34] LABS: POTASSIUM - SERUM 3.7 mmol/L (3.5-5.1); TROPONIN-I < 0.017 ng/mL (0.000-0.060)
[2020-07-10 12:49] VITALS: BP 100/55
[2020-07-10 14:30] LABS: CKMB 0.4 U/L (0.0-3.6); CREATINE KINASE 41 UL (21-232)
--- NOTE | 2020-07-10 14:34 | NUR ---
PT AWAKE AND OIRENTED, SLOW TO RESPOND TO QUESTIONS BUT AT BEDSIDE STATES THIS IS PTS NORMAL. HAS TAKEN ALL MEICATIONS WITHOUT COMPLICATIONS. PT IS INCONT OF B/B. PHYSCIAL THERAPY ASSISTED PT TO STAND, X1 ASSIST FOR TRANSFER THOUGH REPORTS THAT PT IS UNABLE TO WALK LONG DISTANCES AND PRIMARILY STAYS IN BED OR USES A WHEELCHAIR WHEN AT HOME. COMPLAINS OF NAUSEA AND DRY HEAVING WHEN HE ATTEMTPS TO EAT OR DRINK ANYTHING. CL IN REACH, SRX2.
[2020-07-10 14:35] LABS: TROPONIN-I < 0.017 ng/mL (0.000-0.060)
--- NOTE | 2020-07-10 17:21 | NUR ---
I have reviewed this patient and I concur with the Shift Assessment completed by the Licensed Practical Nurse today this shift.
[2020-07-10 18:52] VITALS: BP 103/50
[2020-07-10 19:16] LABS: BILIRUBIN NEGATIVE (NEGATIVE); KETONE NEGATIVE (NEGATIVE); NITRITE NEGATIVE (NEGATIVE); UROBILINOGEN NORMAL mg/dL (< 2)
[2020-07-10 19:17] LABS: BACTERIA MODERATE HPF (NONE SEEN); SQUAMOUS EPITHELIAL 0-5 HPF (0-4); WHITE CELLS - URINE >50 HPF (0-1)
[2020-07-10 20:00] VITALS: BP 113/69
[2020-07-11 04:00] VITALS: BP 120/66
[2020-07-11 07:06] LABS: BASOPHILS 0.3 % (0-2); EOSINOPHILS 1.6 % (0-7); HEMATOCRIT 27.5 % (42.0-54.0); HEMOGLOBIN 8.9 g/dL (13.5-17.5); IMMATURE GRANULOCYTES 0.2 % (0-5); LYMPHOCYTE ABS# 1.07 10x3/uL (1.32-3.57); LYMPHOCYTES 18.6 % (15-50); MCH 29.9 pg (26.0-34.0); MCHC 32.4 g/dL (31.0-37.0); MEAN PLATELET VOLUME 9.2 fL (7.4-10.4); MONOCYTES 7.1 % (2-11); NEUTROPHIL ABS# 4.14 10x3/uL (1.78-5.38); NEUTROPHILS 72.2 % (40-80); PLATELET COUNT 226 10x3/uL (130-400); RBC 2.98 10x6/uL (4.20-6.10); RDW 16.6 % (11.5-14.5)
[2020-07-11 07:07] LABS: MCV 92.3 fL (80.0-100.0); WBC 5.7 10x3/uL (4.8-10.8)
[2020-07-11 07:15] LABS: ALBUMIN 1.8 g/dL (3.4-5.0); ANION GAP 9.2 mmol/L (8-16); BILIRUBIN - TOTAL 0.4 mg/dL (0.2-1.3); CARBON DIOXIDE 25.3 mmol/L (21.0-32.0); CREATININE - SERUM 1.3 mg/dL (0.6-1.3); MAGNESIUM - SERUM 2.2 mg/dL (1.8-2.4); POTASSIUM - SERUM 3.5 mmol/L (3.5-5.1); PROTEIN - SERUM 5.5 g/dL (6.4-8.2)
[2020-07-11 08:22] VITALS: BP 114/60
--- NOTE | 2020-07-11 11:17 | NUR ---
PT ALERT AND ORIENTED, AT BEDSIDE. TAKEN ALL MEDICATIONS WITHOUT COMPLICATIONS. STATES HE'S WILLING TO GO TO REHAB. PARTICIPATED WITH PHYSICAL THERAPY. OBTAINED ORTHOSTATIC B/PS WHILE P/T WAS IN ROOM. FOLLOWED: LYIN/65 SITTIN/60 STANDIN/55 PT REPORTED DIZZIENESS WITH MOVEMENT. CURRENTLY SITTING IN RECLINER, AT BEDSIDE. CHANGED FROM B.M. AND URINE, CURRENTLY CLEAN AND DRY WITH BRIEF ON. CL IN REACH.
--- NOTE | 2020-07-11 11:32 | NUR ---
REHAB PRESCREENING Rehab referral received and chart reviewed. OT and ST evaluations pending. This patients insurance provider requires prior authorization for acute inpatient rehab. Rehab will continue to follow for evaluations and submit for preauth at that time if patient is willing to come. Thank you for this referral! Antonietta Diaz, RN PROVIDER RELATIONS Rehab PD
[2020-07-11 12:00] VITALS: BP 120/64
--- NOTE | 2020-07-11 12:42 | NUR ---
TRANSFERED PT BACK TO BED, X2 ASSIST. PT DID WELL. HAS LEFT BEDSIDE.
[2020-07-11 12:59] VITALS: BMI 19.3
--- NOTE | 2020-07-11 13:44 | MORECARE ---
CASE MANAGEMENT DISCHARGE SUMMARY PATIENT: MARTHA ALMARAZ UNIT: [id number] ADM DATE: 07/09/20 AGE: 84 : 34 SEX: M ROOM/BED: D.2195 AUTHOR: OUSMANE JAIMES PHYSICIAN: REFERRING PHYSICIAN: PREM ANGULO MD DATE OF SERVICE: 07/11/20 Discharge Plan Patient Name: MARTHA ALMARAZ Facility: [facility]:[place] : 1935 Planned Disposition: Inpatient Rehab Anticipated Discharge Date: Discharge Date: Expected LOS: Initial Reviewer: [email or web address] Initial Review Date: 07/11/2020 Generated: 07/11/20 2:44 pm Coverage Notice Reviewer: [id number] Sarah Diaz Notice Issued Date-Time: 07/11/2020 13:38 Notice Type: Patient Choice Letter Notice Delivered To: Patient Relationship to Patient: Self Community Mental Health Worker Name: Delivery Method: HAND - Hand Delivered Sirena Days: Prior Verbal Notification: Recipient Understood Notice: Yes Recipient Signature: Yes Med Rec Note Co-signed by Attending: Coverage Notice Comment: [facility]VI for [facility] inpatient rehab Reviewer: [id number] Sarah Diaz Notice Issued Date-Time: 07/11/2020 13:38 Notice Type: IM Discharge Notice Notice Delivered To: Patient Relationship to Patient: Self Community Mental Health Worker Name: Delivery Method: HAND - Hand Delivered Sirena Days: Prior Verbal Notification: Recipient Understood Notice: Yes Recipient Signature: Yes Med Rec Note Co-signed by Attending: Coverage Notice Comment: IMM explained, signed, given, copy placed in MR Patient Name: MARTHA ALMARAZ Page [id number] at 1344 All edits/amendments must be made on the electronic document DICTATION DATE: 07/11/20 1344 GLASS NOVELTY MAKER: AUBREY 07/11/20 1344 RPT#: [id number] DC DATE: STATUS: ADM IN [facility] [address] [place] [address] END OF REPORT
--- NOTE | 2020-07-11 13:53 | MORECARE ---
CASE MANAGEMENT DISCHARGE SUMMARY PATIENT: MARTHA ALMARAZ UNIT: [id number] ADM DATE: 07/09/20 AGE: 84 : 34 SEX: M ROOM/BED: D.3916 AUTHOR: THEODORE,DOC PHYSICIAN: REFERRING PHYSICIAN: PREM ANGULO MD DATE OF SERVICE: 07/11/20 Discharge Plan Patient Name: MARTHA ALMARAZ Facility: [facility]:[place] : 1935 Planned Disposition: Inpatient Rehab Anticipated Discharge Date: Discharge Date: Expected LOS: Initial Reviewer: [id number] Initial Review Date: 07/11/2020 Generated: 07/11/20 2:53 pm Comments DCP- Discharge Planning Updated by [id number]: Carol Diaz on 07/11/20 11:[address] Patient Name: MARTHA ALMARAZ Admission Status: ER Accout number: [id number] Admission Date: 07-09-2020 : 1935 Admission Diagnosis: Attending: PREM ANGULO Current LOS: 2 Anticipated DC Date: Planned Disposition: Inpatient Rehab Primary Insurance: [employer] CHOICE PPO MCR ADVANT Discharge Planning Comments: CM met with patient to discuss discharge planning/needs. He states that he is too weak to get out of the bed much at home and agrees to rehab services. He would like me to speak with his about rehab. I called his spouse and she states "I think he needs to go somewhere alf where someone can take care of him." She states that she and him had been for a year and he left [place] and came to [place]. When he was diagnosed with cancer in July, she came here to assist in his care. She states that she does not know any of the facilities here, so I started naming the SNF in [place] and she states she would rather not speak about them now and try inpatient rehab at [facility]. I informed her that he would need authorization from his insurance and could be denied and need a SNF as back up. She wants to think about it for awhile and let me know. He does have a rollator walker at home, but states he mainly stays in bed. I discussed hospice, but she states right now he does not want hospice. Rehab referral is in and I will continue to follow and assist with discharge planning/needs. Caisson Worker: Carol Emily DCPIA - Discharge Planning Initial Assessment Updated by [id number]: Carol Diaz on 07/11/20 1:46 pm * Is the patient Alert and Oriented? Yes * How many steps to enter\\exit or inside your home? 0/0 * PCP Dr. Larry * Pharmacy [facility] on [facility] * Preadmission Environment Home with Family * ADLs Partial Dependent * Partial ADLs (Assistance needed) Ambulation Bathing Medication Management * Equipment Other Shower Chair * Other Equipment Rollator walker * List name and contact numbers for known caregivers / representatives who currently or will assist patient after discharge: Elyse Almaraz - [facility] - [phone] * Verbal permission to speak to the caregivers and representatives has been obtained from the patient. Yes * Community resources currently utilized None * Additional services required to return to the preadmission environment? Yes * Can the patient safely return to the preadmission environment? No * Has this patient been hospitalized within the prior 30 days at any hospital? No Coverage Notice Reviewer: [id number] Sarah Diaz Notice Issued Date-Time: 07/11/2020 13:38 Notice Type: Patient Choice Letter Notice Delivered To: Patient Relationship to Patient: Self Violin Mechanic Name: Delivery Method: HAND - Hand Delivered Sirena Days: Prior Verbal Notification: Recipient Understood Notice: Yes Recipient Signature: Yes Med Rec Note Co-signed by Attending: Coverage Notice Comment: DEVI for [facility] inpatient rehab Reviewer: [id number] Sarah Diaz Notice Issued Date-Time: 07/11/2020 13:38 Notice Type: IM Discharge Notice Notice Delivered To: Patient Relationship to Patient: Self Violin Mechanic Name: Delivery Method: HAND - Hand Delivered Sirena Days: Prior Verbal Notification: Recipient Understood Notice: Yes Recipient Signature: Yes Med Rec Note Co-signed by Attending: Coverage Notice Comment: IMM explained, signed, given, copy placed in MR Last DP export: 07/11/20 11:44 a Patient Name: MARTHA ALMARAZ Page [phone] at 1353 All edits/amendments must be made on the electronic document DICTATION DATE: 07/11/20 1353 REMELT OPERATOR: AUBREY 07/11/20 1353 RPT#: [id number] DC DATE: STATUS: ADM IN [facility] [address] [place] [address] END OF REPORT
[2020-07-11 15:00] VITALS: BP 101/47
--- NOTE | 2020-07-11 16:49 | NUR ---
REHAB PRESCREENING Rehab referral received and chart reviewed. This patient states he is not willing to participate in the required 3 hours of therapy. Recommend SNF placement. Thank you for this referral! Antonietta Diaz, RENTAL SALES REPRESENTATIVE Rehab PD
--- NOTE | 2020-07-11 17:27 | NUR ---
OT NOTE: PT REQUIRED EXTRA TIME DURING TRANSITIONS SECONDARY TO SYNCOPE. PT COMPLETED BED MOB TASKS WITH MIN A. PT COMPLETED EOB SITTING WITH CGA-MIN A WITH FUNCTIONAL TASKS. PT COMPLETED FACE AND HAND HYGIENE WITH MIN A FOR INCREASED SAFETY AND TRUNK STABILITY. [phone] THANK YOU, IVON PRESCOTT
--- NOTE | 2020-07-11 17:38 | MORECARE ---
CASE MANAGEMENT DISCHARGE SUMMARY PATIENT: MARTHA ALMARAZ UNIT: [id number] ADM DATE: 07/09/20 AGE: 84 : 34 SEX: M ROOM/BED: D.9957 AUTHOR: THEODORE,DOC PHYSICIAN: REFERRING PHYSICIAN: PREM ANGULO MD DATE OF SERVICE: 07/11/20 Discharge Plan Patient Name: MARTHA ALMARAZ Facility: [facility]:[place] : 1935 Planned Disposition: Inpatient Rehab Anticipated Discharge Date: Discharge Date: Expected LOS: Initial Reviewer: [id number] Initial Review Date: 07/11/2020 Generated: 07/11/20 6:37 pm Comments DCP- Discharge Planning Updated by [id number]: Carol Diaz on 07/11/20 3:[address] Received a call from Shayla with IP rehab at [facility], she states he is not a candidate for IP rehab because he cannot tolerate 3 hours of therapy a day. CM to speak with in am about SNF. DCP- Discharge Planning Updated by [id number]: Carol Diaz on 07/11/20 11:[address] Patient Name: MARTHA ALMARAZ Admission Status: ER Accout number: [id number] Admission Date: 07-09-2020 : 1935 Admission Diagnosis: Attending: PREM ANGULO Current LOS: 2 Anticipated DC Date: Planned Disposition: Inpatient Rehab Primary Insurance: [employer] CHOICE PPO MCR ADVANT Discharge Planning Comments: CM met with patient to discuss discharge planning/needs. He states that he is too weak to get out of the bed much at home and agrees to rehab services. He would like me to speak with his about rehab. I called his spouse and she states "I think he needs to go somewhere care home where someone can take care of him." She states that she and him had been for a year and he left [place] and came to [place]. When he was diagnosed with cancer in July, she came here to assist in his care. She states that she does not know any of the facilities here, so I started naming the SNF in [place] and she states she would rather not speak about them now and try inpatient rehab at [facility]. I informed her that he would need authorization from his insurance and could be denied and need a SNF as back up. She wants to think about it for awhile and let me know. He does have a rollator walker at home, but states he mainly stays in bed. I discussed hospice, but she states right now he does not want hospice. Rehab referral is in and I will continue to follow and assist with discharge planning/needs. Billposter: Carol Diaz DCPIA - Discharge Planning Initial Assessment Updated by [id number]: Carol Diaz on 07/11/20 1:46 pm * Is the patient Alert and Oriented? Yes * How many steps to enter\\exit or inside your home? 0/0 * PCP Dr. Larry * Pharmacy [facility] on [facility] * Preadmission Environment Home with Family * ADLs Partial Dependent * Partial ADLs (Assistance needed) Ambulation Bathing Medication Management * Equipment Other Shower Chair * Other Equipment Rollator walker * List name and contact numbers for known caregivers / representatives who currently or will assist patient after discharge: Elyse Juany - [facility] - [phone] * Verbal permission to speak to the caregivers and representatives has been obtained from the patient. Yes * Community resources currently utilized None * Additional services required to return to the preadmission environment? Yes * Can the patient safely return to the preadmission environment? No * Has this patient been hospitalized within the prior 30 days at any hospital? No Coverage Notice Reviewer: [id number] Sarah Diaz Notice Issued Date-Time: 07/11/2020 13:38 Notice Type: Patient Choice Letter Notice Delivered To: Patient Relationship to Patient: Self Cleat Thrower Name: Delivery Method: HAND - Hand Delivered Sirena Days: Prior Verbal Notification: Recipient Understood Notice: Yes Recipient Signature: Yes Med Rec Note Co-signed by Attending: Coverage Notice Comment: DEVI for [facility] inpatient rehab Reviewer: [id number] Sarah Diaz Notice Issued Date-Time: 07/11/2020 13:38 Notice Type: IM Discharge Notice Notice Delivered To: Patient Relationship to Patient: Self Cleat Thrower Name: Delivery Method: HAND - Hand Delivered Sirena Days: Prior Verbal Notification: Recipient Understood Notice: Yes Recipient Signature: Yes Med Rec Note Co-signed by Attending: Coverage Notice Comment: IMM explained, signed, given, copy placed in MR Last DP export: 07/11/20 11:53 a Patient Name: MARTHA ALMARAZ Page [phone] at 1738 All edits/amendments must be made on the electronic document DICTATION DATE: 07/11/201736 BAR HELPER: AUBREY 07/11/201736 RPT#: [id number] DC DATE: STATUS: ADM IN [facility] [address] [place] [address] END OF REPORT
--- NOTE | 2020-07-11 18:00 | NUR ---
I have reviewed this patient and I concur with the Shift Assessment completed by the Licensed Practical Nurse today this shift.
--- NOTE | 2020-07-11 18:23 | NUR ---
PT RESTING COMFORTABLY AT THIS ITME. EYES CLOSED, BREATHS EVEN/REGUALR/UNLABORED, NO FAMILY AT BEDSIDE. PT HAD 2 LARGE BMS, CLEANED PT, CHANGED LINNENS. NO COMPALINTS OR CONCERNS AT THIS TIME. CL IN REACH,SRX2.
--- NOTE | 2020-07-11 19:55 | NUR ---
CARDIAC NURSE PRACTITIONER AT BED SIDE, BATH AND LINEN CHANGE COMPLETE.
[2020-07-11 20:00] VITALS: BP 99/43
[2020-07-12] VITALS: BP 90/51
--- NOTE | 2020-07-12 00:55 | NUR ---
RESTING WITH EEYS CLOSED, NO S/S DISTRESS NOTED.
--- NOTE | 2020-07-12 03:27 | NUR ---
I have reviewed this patient and I concur with the Shift Assessment completed by the Licensed Practical Nurse today this shift.
[2020-07-12 04:00] VITALS: BP 99/55
[2020-07-12 06:30] LABS: BASOPHILS 0.2 % (0-2); EOSINOPHILS 1.6 % (0-7); HEMATOCRIT 26.6 % (42.0-54.0); HEMOGLOBIN 8.7 g/dL (13.5-17.5); IMMATURE GRANULOCYTES 0.2 % (0-5); LYMPHOCYTE ABS# 1.48 10x3/uL (1.32-3.57); LYMPHOCYTES 23.6 % (15-50); MCH 29.9 pg (26.0-34.0); MCHC 32.7 g/dL (31.0-37.0); MCV 91.4 fL (80.0-100.0); MEAN PLATELET VOLUME 9.2 fL (7.4-10.4); MONOCYTES 5.4 % (2-11); NEUTROPHIL ABS# 4.32 10x3/uL (1.78-5.38); PLATELET COUNT 226 10x3/uL (130-400); RBC 2.91 10x6/uL (4.20-6.10); RDW 16.5 % (11.5-14.5); WBC 6.3 10x3/uL (4.8-10.8)
[2020-07-12 07:13] LABS: ALBUMIN 1.6 g/dL (3.4-5.0); ANION GAP 10.5 mmol/L (8-16); BILIRUBIN - TOTAL 0.49 mg/dL (0.2-1.3); CARBON DIOXIDE 21.8 mmol/L (21.0-32.0); CREATININE - SERUM 1.2 mg/dL (0.6-1.3); POTASSIUM - SERUM 3.3 mmol/L (3.5-5.1); PROTEIN - SERUM 4.5 g/dL (6.4-8.2)
[2020-07-12 07:18] LABS: CALCIUM 6.2 mg/dL (8.5-10.1)
[2020-07-12 09:14] VITALS: BP 112/66
--- NOTE | 2020-07-12 14:32 | NUR ---
OT NOTE: BED MOB WITH MIN/MOD ASSIST; EOB SITTING WITH GOOD BALANCE; MAX ASSIST TO DONNELL SOCKS; MIN ASSIST TO DONNELL GOWN; IN ROOM AMBULATION WITH JUNIOR SOFTWARE DEVELOPER X 15-20 FT AROUND ROOM. JAKE MUNGUIA OTR/L
--- NOTE | 2020-07-12 14:55 | NUR ---
PATIENT LYING SUPINE AAOX4, RESP EVEN AND NON LABORED, NO S/S OF DISTRESS, MEDICATIONS ADMINISTERED WITH NO COMPLICATIONS, PATIENT HAS DARK BROWN MEDIUM DIARRHEA X4, STOOL SAMPLE OBTAINED AND TOOK TO LAB, NO FURTHER NEEDS AT THIS TIME, CAITLYN AMAYA
[2020-07-12 16:00] VITALS: BP 111/46
[2020-07-12 20:00] VITALS: BP 120/69
--- NOTE | 2020-07-12 23:13 | NUR ---
RESTING WITH EYES CLOSED, RESPERATIONS EVEN, NO S/S DISTRESS NOTED.
--- NOTE | 2020-07-13 03:33 | NUR ---
I have reviewed this patient and I concur with the Shift Assessment completed by the Licensed Practical Nurse today this shift.
[2020-07-13 04:00] VITALS: BP 109/59
[2020-07-13 05:06] LABS: BASOPHILS 0.3 % (0-2); EOSINOPHILS 1.7 % (0-7); HEMATOCRIT 27.5 % (42.0-54.0); IMMATURE GRANULOCYTES 0.2 % (0-5); LYMPHOCYTE ABS# 1.74 10x3/uL (1.32-3.57); LYMPHOCYTES 27.3 % (15-50); MCH 30.2 pg (26.0-34.0); MCHC 32.7 g/dL (31.0-37.0); MCV 92.3 fL (80.0-100.0); MEAN PLATELET VOLUME 8.6 fL (7.4-10.4); MONOCYTES 5.7 % (2-11); NEUTROPHIL ABS# 4.13 10x3/uL (1.78-5.38); NEUTROPHILS 64.8 % (40-80); PLATELET COUNT 222 10x3/uL (130-400); RBC 2.98 10x6/uL (4.20-6.10); WBC 6.4 10x3/uL (4.8-10.8)
[2020-07-13 06:17] LABS: ALBUMIN 1.8 g/dL (3.4-5.0); BILIRUBIN - TOTAL 0.53 mg/dL (0.2-1.3); CREATININE - SERUM 1.1 mg/dL (0.6-1.3); POTASSIUM - SERUM 3.2 mmol/L (3.5-5.1); PROTEIN - SERUM 5.2 g/dL (6.4-8.2)
[2020-07-13 06:24] LABS: ANION GAP 13.3 mmol/L (8-16); CARBON DIOXIDE 19.9 mmol/L (21.0-32.0)
[2020-07-13 06:25] LABS: CALCIUM 6.7 mg/dL (8.5-10.1)
--- NOTE | 2020-07-13 07:15 | NUR ---
RECEIVE SHIFT REPORT. RESTING IN BED ON LEFT SIDE. EYES CLOSED. AT BEDSIDE. CALL LIGHT IN REACH. DENIES ANY NEEDS. CONTINUE POC AND SAFETY PRECAUTIONS.
[2020-07-13 08:28] VITALS: BP 117/66
[2020-07-13 12:24] VITALS: BP 113/56
--- NOTE | 2020-07-13 14:56 | NUR ---
OT NOTE: PT PERFORMED WELL; BED MOB WITH MIN ASSIST INCLUDING SUPINE TO SIT; UE DRSG WITH SET UP(GOWN); MOD ASSIST WITH SOCKS; SET UP WITH GROOMING; IN ROOM MOBILITY WITH RW AND CGA. JAKE MUNGUIA, OTR/L [phone]
[2020-07-13 16:01] VITALS: BP 101/58
--- NOTE | 2020-07-13 17:59 | NUR ---
RIGHT BACK DRESSING CHANGED. SLIGHT REDNESS AROUND INCISION AND CLEAR DRAINAGE. WILL KEEP EYES ON INCISION FOR S/S OF INFECTION.
[2020-07-13 23:48] VITALS: BP 97/53
[2020-07-14 04:45] VITALS: BP 122/68
[2020-07-14 05:44] LABS: ALBUMIN 1.7 g/dL (3.4-5.0); ANION GAP 12.4 mmol/L (8-16); BILIRUBIN - TOTAL 0.7 mg/dL (0.2-1.3); CREATININE - SERUM 1.2 mg/dL (0.6-1.3); MAGNESIUM - SERUM 2.1 mg/dL (1.8-2.4); POTASSIUM - SERUM 3.4 mmol/L (3.5-5.1); PROTEIN - SERUM 5.2 g/dL (6.4-8.2)
[2020-07-14 05:48] LABS: BASOPHILS 0.1 % (0-2); EOSINOPHILS 3.3 % (0-7); HEMATOCRIT 25.1 % (42.0-54.0); HEMOGLOBIN 8.2 g/dL (13.5-17.5); IMMATURE GRANULOCYTES 0.1 % (0-5); LYMPHOCYTE ABS# 2.12 10x3/uL (1.32-3.57); LYMPHOCYTES 31.4 % (15-50); MCH 29.7 pg (26.0-34.0); MCHC 32.7 g/dL (31.0-37.0); MCV 90.9 fL (80.0-100.0); MEAN PLATELET VOLUME 8.9 fL (7.4-10.4); MONOCYTES 6.7 % (2-11); NEUTROPHIL ABS# 3.94 10x3/uL (1.78-5.38); NEUTROPHILS 58.4 % (40-80); PLATELET COUNT 265 10x3/uL (130-400); RBC 2.76 10x6/uL (4.20-6.10); RDW 16.9 % (11.5-14.5); WBC 6.8 10x3/uL (4.8-10.8)
[2020-07-14 05:51] LABS: CALCIUM 6.5 mg/dL (8.5-10.1)
--- NOTE | 2020-07-14 06:26 | NUR ---
I have reviewed this patient and I concur with the Shift Assessment completed by the Licensed Practical Nurse today this shift.
--- NOTE | 2020-07-14 06:26 | NUR ---
I have reviewed this patient and I concur with the Shift Assessment completed by the Licensed Practical Nurse today this shift.
--- NOTE | 2020-07-14 07:13 | NUR ---
RECEIVE SHIFT REPORT. RESTING IN BED WITH EYES CLOSED. NO S/S OF DISTRESS PRESENT AT THIS TIME. FAMILY AT BEDSIDE. WILL CONTINUE POC AND SAFETY PRECAUTIONS. CALL LIGHT IN REACH.
[2020-07-14 08:00] VITALS: BP 115/56
[2020-07-14 11:00] VITALS: BP 135/72
--- NOTE | 2020-07-14 13:27 | NUR ---
Nutrition Follow-up: Poor PO intake but drinking Ensure TID. Some nausea without vomiting. Early satiety. Diarrhea x 3 days. Diet: Regular, Mech Soft, Ensure TID No new wt; last wt: 139# (07/11) Labs noted: K+ 3.4, Ca 6.5, Alb 1.7 Meds noted: Questran, Florajen, Protonix, NS @ 75, electrolyte protocol -Encourage PO intake and honor food preferences within diet restrictions. -Yogurt sent with lunch today. -Need new wt; noted daily wts ordered. -RD follow-up: 07/18
--- NOTE | 2020-07-14 14:42 | NUR ---
REHAB PRESCREENING Rehab referral received and chart reviewed. This patient's insurance provider requires prior authorization for ARU. I will beging auth process. He has noted improvement with gait and should be able to tolerate 3 hours of therapy. Thank you for this referral! Antonietta Diaz, CARDIOGRAPH OPERATOR Rehab PD
[2020-07-14 15:00] VITALS: BP 125/76
--- NOTE | 2020-07-14 15:52 | NUR ---
PATIENT WALKED 130 FEET WITH WALKER WITH MIN ASST, PATIENT IS STILL A LITTLE WEAK.
--- NOTE | 2020-07-14 16:34 | NUR ---
OT NOTE: PT COMPLETED SUPINE TO SIT WITH MIN A. PT COMPLETED ADL MOB WITH CGA. PT REQUIRED MAX A FOR LB HYGIENE SECONDARY TO BM. PT COMPLETED ORAL CARE WITH MIN A. PT COMPLETED SITTING BALANCE WITH SBA. [phone] THANK YOU,IVON PRESCOTT
[2020-07-14 19:49] VITALS: Ht 180.3 cm; Wt 60.5 kg
--- NOTE | 2020-07-14 20:00 | NUR ---
PATIENT RESTING IN ROOM. AT BEDSIDE. NO S/S OF DISTRESS. ASSESSMENT COMPLETE. CLIR, BED IN LOWEST POSITION. WILL CONT TO MONITOR.
[2020-07-14 21:23] VITALS: BP 115/52
--- NOTE | 2020-07-14 23:00 | NUR ---
PATIENT WITH INCONTINENT EPISODE. LINENS AND GOWN CHANGED.NO S/S OF DISTRESS. CLIR. BED IN LOWEST POSITION.
--- NOTE | 2020-07-15 03:48 | NUR ---
INCONTINENT OF BOWEL AND BLADDER. LINENS CHANGED.
[2020-07-15 04:13] VITALS: BP 122/73
[2020-07-15 04:45] LABS: BASOPHILS 0.1 % (0-2); EOSINOPHILS 2.2 % (0-7); HEMATOCRIT 27.7 % (42.0-54.0); HEMOGLOBIN 9.1 g/dL (13.5-17.5); IMMATURE GRANULOCYTES 0.3 % (0-5); LYMPHOCYTE ABS# 2.08 10x3/uL (1.32-3.57); LYMPHOCYTES 29.2 % (15-50); MCHC 32.9 g/dL (31.0-37.0); MCV 91.4 fL (80.0-100.0); MEAN PLATELET VOLUME 8.9 fL (7.4-10.4); MONOCYTES 7.3 % (2-11); NEUTROPHIL ABS# 4.33 10x3/uL (1.78-5.38); NEUTROPHILS 60.9 % (40-80); PLATELET COUNT 233 10x3/uL (130-400); RBC 3.03 10x6/uL (4.20-6.10); RDW 17.2 % (11.5-14.5); WBC 7.1 10x3/uL (4.8-10.8)
[2020-07-15 04:58] LABS: % SATURATION 39 % (15-55); IRON 34 ug/dl (35-150); TOTAL IRON BIND CAPACITY 86 ug/dl (260-445)
[2020-07-15 05:00] LABS: UNSAT IRON BIND CAPACITY 52 ug/dl (150-375)
[2020-07-15 05:21] LABS: ALBUMIN 1.7 g/dL (3.4-5.0); ANION GAP 14.2 mmol/L (8-16); BILIRUBIN - TOTAL 0.69 mg/dL (0.2-1.3); CARBON DIOXIDE 19.2 mmol/L (21.0-32.0); CREATININE - SERUM 1.4 mg/dL (0.6-1.3); MAGNESIUM - SERUM 2.3 mg/dL (1.8-2.4); POTASSIUM - SERUM 3.4 mmol/L (3.5-5.1); PROTEIN - SERUM 5.5 g/dL (6.4-8.2)
[2020-07-15 05:24] LABS: CALCIUM 6.9 mg/dL (8.5-10.1)
--- NOTE | 2020-07-15 07:15 | NUR ---
RECEIVE SHIFT REPORT. RESTING IN BED WITH EYES CLOSED. FAMILY AT BEDSIDE. CALL LIGHT IN REACH. WILL CONTINUE POC AND SAFETY PRECAUTIONS.
[2020-07-15 07:43] VITALS: BP 114/43
[2020-07-15 14:21] VITALS: BP 97/53
--- NOTE | 2020-07-15 15:32 | NUR ---
OT NOTE: PT PERFORMED WELL. WANTING TO STAY IN BED BUT ENCOURAGED TO PARTICIPATE. BED MOB WITH MIN ASSIST; EOB SITTING WITH SBA; ABLE TO AMB WITH MOSAIC FLOOR LAYER X 2 TO SINK. PT ABLE TO PERFORM GROOMING TASKS AT SINK WITH SET UP AND MIN ASSIST FOR BALANCE. JAKE MUNGUIA, OTR/L [phone]
--- NOTE | 2020-07-15 15:34 | NUR ---
OT NOTE: PT COMPLETED SUPINE TO SIT WITH MIN A. PT COMPLETED EOB SITTING WITH CGA. PT COMPLETED SIT TO STAND WITH SUBGRADE TESTER. PT REQUIRED MAX A FOR LB HYGIENE TASKS. PT REQUIRED MOD A FOR DONNELL/DOFF GOWN. [phone] THANK YOU,IVON PRESCOTT
[2020-07-15 15:57] VITALS: BP 122/69
[2020-07-15 15:58] VITALS: BP 107/57; BP 121/83
--- NOTE | 2020-07-15 17:22 | NUR ---
RESTING IN BED. COMPLAINTS OF BEING COLD DESPITE BLANKETS. STILL HAVING DIARRHEA. CALMOSEPTINE ON BOTTOM. DENIES ANY OTHER NEEDS. FAMILY AT BEDSIDE.
--- NOTE | 2020-07-15 20:00 | NUR ---
ALERT AND ORIENTED, NO S/S OF DISTRESS, ASSESSMENT COMPLETED. FAMILY AT BEDSIDE. CLIR. WILL CONT TO MONITOR.
[2020-07-15 20:57] VITALS: BP 108/51
--- NOTE | 2020-07-15 23:04 | NUR ---
AWAKE IN ROOM. WATCHING TV WITH FAMILY AT BS. NO S/S OF DISTRESS. DENIES ANY NEEDS. CLIR. WILL CONT TO MONITOR.
[2020-07-16 00:13] VITALS: BP 111/54
[2020-07-16 06:14] VITALS: BP 105/45
[2020-07-16 06:31] LABS: BASOPHILS 0.1 % (0-2); EOSINOPHILS 3.5 % (0-7); HEMATOCRIT 26.7 % (42.0-54.0); HEMOGLOBIN 8.6 g/dL (13.5-17.5); IMMATURE GRANULOCYTES 0.3 % (0-5); LYMPHOCYTE ABS# 1.63 10x3/uL (1.32-3.57); LYMPHOCYTES 23.9 % (15-50); MCH 30.2 pg (26.0-34.0); MCHC 32.2 g/dL (31.0-37.0); MEAN PLATELET VOLUME 8.9 fL (7.4-10.4); MONOCYTES 8.1 % (2-11); NEUTROPHIL ABS# 4.36 10x3/uL (1.78-5.38); NEUTROPHILS 64.1 % (40-80); PLATELET COUNT 238 10x3/uL (130-400); RBC 2.85 10x6/uL (4.20-6.10); RDW 17.7 % (11.5-14.5); WBC 6.8 10x3/uL (4.8-10.8)
[2020-07-16 06:35] LABS: MCV 93.7 fL (80.0-100.0)
[2020-07-16 06:56] LABS: ALBUMIN 1.6 g/dL (3.4-5.0); ANION GAP 14.2 mmol/L (8-16); BILIRUBIN - TOTAL 0.62 mg/dL (0.2-1.3); CARBON DIOXIDE 18.5 mmol/L (21.0-32.0); CREATININE - SERUM 1.5 mg/dL (0.6-1.3); POTASSIUM - SERUM 3.7 mmol/L (3.5-5.1); PROTEIN - SERUM 5.5 g/dL (6.4-8.2)
[2020-07-16 07:01] LABS: CALCIUM 6.6 mg/dL (8.5-10.1)
[2020-07-16 09:37] VITALS: BP 109/60
--- NOTE | 2020-07-16 10:58 | NUR ---
CLEANED PT UP FROM INCONT EPISODE, APPLIED CALMOSEPTINE CREAM TO BOTTOM. PT DENIES ANY NEEDS AT THIS TIME, CALL LIGHT IN REACH.
--- NOTE | 2020-07-16 12:30 | NUR ---
CLEANED PT UP FROM INCONT EPISODE AND REPOSITIONED PT IN BED, PT DENIES ANY NEEDS AT THIS TIME. FAMILY AT BEDSIDE, CALL LIGHT IN REACH.
[2020-07-16 17:08] VITALS: BP 127/67
--- NOTE | 2020-07-16 18:07 | NUR ---
CLEANED PT UP FROM INCONT EPISODE, PT DENIES ANY NEEDS AT THIS TIME . SPOUSE AT BEDSIDE, CALL LIGHT IN REACH.
[2020-07-16 20:52] VITALS: BP 114/70
--- NOTE | 2020-07-16 21:00 | NUR ---
ASSESSMENT COMPLETE. NO S/S OF DISRESS. AAOX4. LINENS CHANGES. MEDS PASSED.
[2020-07-17 05:33] LABS: BASOPHILS 0.2 % (0-2); EOSINOPHILS 3.8 % (0-7); HEMATOCRIT 26.4 % (42.0-54.0); HEMOGLOBIN 8.5 g/dL (13.5-17.5); IMMATURE GRANULOCYTES 0.5 % (0-5); LYMPHOCYTE ABS# 1.62 10x3/uL (1.32-3.57); LYMPHOCYTES 24.9 % (15-50); MCH 30.1 pg (26.0-34.0); MCHC 32.2 g/dL (31.0-37.0); MCV 93.6 fL (80.0-100.0); MEAN PLATELET VOLUME 8.8 fL (7.4-10.4); MONOCYTES 7.4 % (2-11); NEUTROPHIL ABS# 4.12 10x3/uL (1.78-5.38); NEUTROPHILS 63.2 % (40-80); PLATELET COUNT 220 10x3/uL (130-400); RBC 2.82 10x6/uL (4.20-6.10); RDW 18.1 % (11.5-14.5); WBC 6.5 10x3/uL (4.8-10.8)
[2020-07-17 05:41] VITALS: BP 124/64
[2020-07-17 06:02] LABS: ALBUMIN 1.5 g/dL (3.4-5.0); BILIRUBIN - TOTAL 0.55 mg/dL (0.2-1.3); CARBON DIOXIDE 19.7 mmol/L (21.0-32.0); CREATININE - SERUM 1.6 mg/dL (0.6-1.3); POTASSIUM - SERUM 3.6 mmol/L (3.5-5.1); PROTEIN - SERUM 5.6 g/dL (6.4-8.2)
--- NOTE | 2020-07-17 06:30 | NUR ---
PT RESTED COMFORTABLY THROUGHT THE NIGHT. VITALS WNL, NO COMPLAINTS. AT BEDSIDE WITH NO NEEDS AT THIS TIME. IV INTACT, FLUIDS RUNNING. PT CHECKED FOR INCOTINENCE, CLEAN AND DRY AT THIS TIME.
[2020-07-17 06:51] LABS: ANION GAP 12.9 mmol/L (8-16)
[2020-07-17 06:52] LABS: CALCIUM 6.5 mg/dL (8.5-10.1)
--- NOTE | 2020-07-17 07:42 | NUR ---
INITIAL ROUNDS- PT RESTING COMFORTABLY IN BED A/O X4, RESP EVEN AND NONLABORED ON RA. RT FA IV INFUSING NS AT 125CC/HR. CLEANED PT UP FROM INCONT EPISODE AND REPOSITIONED PT IN BED. PT DENIES ANY NEEDS AT THIS TIME. CALL LIGHT IN REACH, SPOUSE AT BEDSIDE, WILL CONTINUE PLAN OF CARE.
[2020-07-17 09:28] VITALS: BP 110/51
[2020-07-17 16:32] VITALS: BP 118/60
--- NOTE | 2020-07-17 19:39 | NUR ---
PATIENT RESTING IN BED WITH NO S/S OF DISTRESS. GUEST AT BEDSIDE. PATIENT DENIES NEEDS AT THIS TIME. BED IN LOWEST POSITION AND CALL LIGHT IN REACH. ENCOURAGED PATIENT TO CALL WITH NEEDS.
[2020-07-17 20:30] VITALS: BP 114/60
--- NOTE | 2020-07-17 21:25 | NUR ---
ADMINISTERED MEDS PER ORDERS. PATIENT JOSE WELL. ENCOURAGED PATIENT TO CALL WITH NEEDS.
[2020-07-18] VITALS (8 sets, daily range): BP systolic 103–129; BP diastolic 52–78
[2020-07-18 05:32] LABS: BASOPHILS 0.1 % (0-2); HEMATOCRIT 25.4 % (42.0-54.0); HEMOGLOBIN 8.2 g/dL (13.5-17.5); IMMATURE GRANULOCYTES 0.3 % (0-5); LYMPHOCYTE ABS# 1.71 10x3/uL (1.32-3.57); LYMPHOCYTES 22.3 % (15-50); MCHC 32.3 g/dL (31.0-37.0); MEAN PLATELET VOLUME 9.2 fL (7.4-10.4); MONOCYTES 8.1 % (2-11); NEUTROPHIL ABS# 5.09 10x3/uL (1.78-5.38); NEUTROPHILS 66.2 % (40-80); PLATELET COUNT 259 10x3/uL (130-400); RBC 2.73 10x6/uL (4.20-6.10); RDW 18.6 % (11.5-14.5); WBC 7.7 10x3/uL (4.8-10.8)
[2020-07-18 06:00] LABS: ALBUMIN 1.4 g/dL (3.4-5.0); BILIRUBIN - TOTAL 0.42 mg/dL (0.2-1.3); CARBON DIOXIDE 16.8 mmol/L (21.0-32.0); CREATININE - SERUM 1.7 mg/dL (0.6-1.3); POTASSIUM - SERUM 3.6 mmol/L (3.5-5.1); PROTEIN - SERUM 5.1 g/dL (6.4-8.2)
[2020-07-18 06:18] LABS: ANION GAP 14.8 mmol/L (8-16)
[2020-07-18 06:20] LABS: CALCIUM 6.3 mg/dL (8.5-10.1)
--- NOTE | 2020-07-18 11:09 | NUR ---
CLEANED PT UP FROM INCONT EPISODE. EDUCATED PT ON THE IMPORTANCE OF WEARING SCDS, PT STILL REFUSED TO WEAR SCDS AT THIS TIME. STATES THAT HIS HIP HURTS TO MUCH. DRESSING TO RT LOWER BACK COMPLETELY OFF, CLEANED WITH IODINE AND PLACED NEW DRESSING. PT DENIES ANY NEEDS AT THIS TIME. SPOUSE AT [facility], CALL LIGHT IN REACH.
--- NOTE | 2020-07-18 11:41 | NUR ---
ORTHOSTATIC VITALS LAYING DOWN TEMP- 97.8, BP 129/57, HR 85, RESP 20, O2 98% SITTING BP 116/63, HR 93, RESP 20, O2 97% STANDING BP 115/60, HR 106, RESP 20, 02 100%
--- NOTE | 2020-07-18 13:17 | NUR ---
Nutrition Reassessment/Follow-up: reports pt refusing food, drinking Ensure. Continues to have diarrhea with multiple episodes already at time of visit this AM; noted CDT to be repeated. Noted hospice vs home with HH vs SNF discussed with ; wants SNF. Diet: Regular, Mech Soft, Ensure TID PO intake: 0% x 6 meals (07/16-07/17) Wt: 133# (07/17); 139# (07/10) -- loss of 6# within 1 wkBMI: 18.5 Labs noted: Na 148, Cre 1.7, GFR 41, Ca 6.3, Alb 1.4 Meds noted: Lomotil, Imodium, Questran, Megace, Protonix, Oscal, NS @ 125, electrolyte protocol Est needs: 9764-0533 kcal/day (25-35 kcal/kg) 50-60 g protein/day (0.8-1 g/kg) -Encourage PO intake and honor food preferences within diet restrictions. -MD may consider nutrition support 2/2 ongoing poor PO intake and wt loss. -Monitor wt; noted daily wts ordered. -RD will follow up within 2-3 days.
--- NOTE | 2020-07-18 14:01 | NUR ---
NORCO GIVEN FOR PAIN LEVEL OF 6/10. PT DENIES BEING WET OR NEEDING TO BE CLEANED UP. SPOUSE AT BEDSIDE, CALL LIGHT IN REACH.
--- NOTE | 2020-07-18 16:43 | NUR ---
OT NOTE: PT COMPLETED SUPINE TO SIT WITH MIN-MOD A SECONDARY TO HIP PAIN. NURSING AWARE. PT COMPLETED EOB SITTING BALANCE WITH SBA. PT COMPLETED BUE AROM AXS WHILE SEATED WITH CGA. PT COMPLETED SIT TO STAND WITH MIN A . PT REQUIRED CGA A TO MAINTAIN BALANCE WITH STATIC STANDING. PT COMPLETED SIMPLE FACE AND HAND HYGIENE WHILE SEATED AT EOB WITH SETUP. [id number] THANK YOU,IVON PRESCOTT
--- NOTE | 2020-07-18 18:55 | NUR ---
NORCO GIVEN FOR PAIN LEVEL OF 6/10. PT DENIES ANY NEEDS, SPOUSE AT BEDSIDE, CALL LIGHT IN REACH.
--- NOTE | 2020-07-18 19:10 | NUR ---
REPORT RECEIVED, WILL CONT POC. PT A&O, AT BEDSIDE. NO S/S OF DISTRESS OBSERVED. RR EVEN & UNLABORED ON RA. BED LOCKED AND LOWERED, CL IN REACH. ASSESSMENT COMPLETED AT THIS TIME. WILL CONT TO MONITOR.
[2020-07-19 00:29] VITALS: BP 112/70
[2020-07-19 05:38] VITALS: BP 141/80
[2020-07-19 06:15] LABS: BASOPHILS 0 % (0-2); HEMATOCRIT 25.4 % (42.0-54.0); HEMOGLOBIN 8.3 g/dL (13.5-17.5); IMMATURE GRANULOCYTES 0.4 % (0-5); LYMPHOCYTE ABS# 1.14 10x3/uL (1.32-3.57); MCH 30.3 pg (26.0-34.0); MCHC 32.7 g/dL (31.0-37.0); MCV 92.7 fL (80.0-100.0); MEAN PLATELET VOLUME 8.7 fL (7.4-10.4); MONOCYTES 6.7 % (2-11); NEUTROPHILS 69.9 % (40-80); PLATELET COUNT 262 10x3/uL (130-400); RBC 2.74 10x6/uL (4.20-6.10); RDW 19.1 % (11.5-14.5)
[2020-07-19 06:23] LABS: WBC 5.7 10x3/uL (4.8-10.8)
[2020-07-19 06:35] LABS: ALBUMIN 1.4 g/dL (3.4-5.0); BILIRUBIN - TOTAL 0.37 mg/dL (0.2-1.3); CARBON DIOXIDE 16.2 mmol/L (21.0-32.0); CREATININE - SERUM 1.7 mg/dL (0.6-1.3); POTASSIUM - SERUM 3.6 mmol/L (3.5-5.1); PROTEIN - SERUM 5.2 g/dL (6.4-8.2)
[2020-07-19 06:47] LABS: ANION GAP 16.4 mmol/L (8-16)
[2020-07-19 06:48] LABS: CALCIUM 6.5 mg/dL (8.5-10.1)
--- NOTE | 2020-07-19 08:31 | NUR ---
AM MEDS GIVEN PER EMAR. PT LYING IN BED WITH HOB RAISED. DID NOT WANT TO EAT BREAKFAST BUT DRANK HIS COFFEE. AT BEDSIDE. NO NEEDS VOICED. CLWR.
[2020-07-19 08:39] VITALS: BP 133/77
[2020-07-19 12:06] VITALS: BP 92/53
--- NOTE | 2020-07-19 14:08 | NUR ---
PT LYING ON RIGHT SIDE, RR EVEN NON LABORED. EYES CLOSED AND APPEARS TO BE RESTING COMFORTABLY. AT BEDSIDE VISITING WITH HOSPICE NURSE. NO NEEDS VOICED. CLWR.
[2020-07-19 15:00] VITALS: BP 127/66
--- NOTE | 2020-07-19 15:57 | NUR ---
OT NOTE: (AM) PT COMPLETED SUPINE TO SIT WITH CGA. PT EXHIBITED INCREASED I WITH BED MOB. PT COMPLETED EOB SITTING WITH SBA. PT COMPLETED ADL MOB WITH CGA-MIN A. PT IS SOB WITH DYNAMIC ACTIVITY. NUSING NOTIFIED. PT REQUIRED MAX A FOR SHAVING. PT COMPLETED DONNELL SOCKS WITH MAX A. (PM) PT COMPLETED BUE AROM EXS TOLERATED. [phone];130-145 KAYLEE AVILA COTA
--- NOTE | 2020-07-19 16:35 | MORECARE ---
CASE MANAGEMENT DISCHARGE SUMMARY PATIENT: MARTHA ALMARAZ UNIT: [id number] ADM DATE: 07/09/20 AGE: 84 : 34 SEX: M ROOM/BED: D.2125 AUTHOR: THEODORE,DOC PHYSICIAN: REFERRING PHYSICIAN: PREM ANGULO MD DATE OF SERVICE: 07/19/20 Case Management Discharge Planning Summary COMMENTS ENTERED DATE: 07/19/20 16:28 CT COMMENT TYPE: Discharge Planning REVIEWER: Carol Diaz CM met with patient and today and they agree on hospice. Spouse would like to stay inpatient hospital if possible. DEVI for [facility] signed and for [place], [place] or [place]. [place] does not do hospice, only comfort care. [place] does not do hospice either. I faxed referral to [place]. Vishal ([facility]) visited with spouse and patient. Spouse would like Emmett to return when patient's sister is here tomorrow. Vishal states the patient's spouse states first choice would be to go to [facility] for inpatient hospice. CM will continue to follow and assist with discharge planning/needs. ENTERED DATE: 07/19/20 13:49 CT COMMENT TYPE: Discharge Planning REVIEWER: Carol Diaz Maggie called from [place] and states they do not have hospice at their facility and if patient did not survive 30 days, they would be responsible for the charge. I spoke with patient's and she would like a referral to [place]. MARILUZ faxed referral to [place]. ENTERED DATE: 07/19/20 11:30 CT COMMENT TYPE: Discharge Planning REVIEWER: Carol Diaz CM MET WITH PATIENT AND HIS IN THE ROOM. DEVI FOR [facility] FIRST CHOICE. I SPOKE WITH JJ AT [facility] AND [facility]ICAL FAXED. SECOND CHOICE IS [place] [facility] [place] OR [place]. CM WILL CONTINUE TO FOLLOW AND ASSIST WITH DISCHARGE PLANNING/NEEDS DCP REVIEW SUMMARY ANTICIPATED D/C DATE: EXPECTED LOS : CASE STATUS: DCP Initiated INITIAL REVIEW: 07/19/2020 INITIAL REVIEWER: Carol Diaz FINAL DISCHARGE DISPOSITION: : FINAL REVIEWER: FINAL REVIEW DATE: DCP Focus Questions & Answers - Added on: QUESTION: ANSWER : PATIENT: MARTHA ALMARAZ ENCOUNTER: [id number] MEDICAL RECORD#: [id number] ADMISSION DATE: 07/09/2020 DISCHARGE DATE: ATTENDING MD: PREM BONILLA : AGE: 84 MARITAL STATUS: M DC PLAN ID: [id number] FACILITY: [facility] PRINTED ON: 07/19/20 16:35 CT All edits/amendments must be made on the electronic document DICTATION DATE: 07/19/201634 OXYGRAPH OPERATOR: AUBREY 07/19/20 163 RPT#: [id number] DC DATE: STATUS: ADM IN [facility] [address] [place] [address] END OF REPORT
--- NOTE | 2020-07-19 19:29 | NUR ---
REPORT RECEIVED WILL CONT POC. PT ALERT AND ORIENTED, AT BEDSIDE. NO S/S OF DISTRESS OBSERVED. RR EVEN AND UNLABORED ON RA. BED LOCKED AND LOWERED, CL IN REACH. ASSESSMENT COMPLETED AT THIS TIME. WILL CONT TO MONITOR.
[2020-07-19 21:17] VITALS: BP 131/75
--- NOTE | 2020-07-20 00:47 | NUR ---
STOOL SAMPLE SENT TO LAB. KRISS FROM LAB REPORTED THAT STOOL WAS NOT LOOSE ENOUGH TO PERFORM CDIFF STOOL TEST.
[2020-07-20 01:46] VITALS: BP 118/70
[2020-07-20 05:40] VITALS: BP 119/73
[2020-07-20 06:00] LABS: BASOPHILS 0 % (0-2); EOSINOPHILS 1.3 % (0-7); HEMATOCRIT 23.9 % (42.0-54.0); HEMOGLOBIN 7.6 g/dL (13.5-17.5); IMMATURE GRANULOCYTES 0.2 % (0-5); LYMPHOCYTE ABS# 1.56 10x3/uL (1.32-3.57); LYMPHOCYTES 28.5 % (15-50); MCH 29.3 pg (26.0-34.0); MCHC 31.8 g/dL (31.0-37.0); MCV 92.3 fL (80.0-100.0); MONOCYTES 6.8 % (2-11); NEUTROPHIL ABS# 3.46 10x3/uL (1.78-5.38); NEUTROPHILS 63.2 % (40-80); PLATELET COUNT 290 10x3/uL (130-400); RBC 2.59 10x6/uL (4.20-6.10); RDW 19.7 % (11.5-14.5); WBC 5.5 10x3/uL (4.8-10.8)
[2020-07-20 06:27] LABS: ALBUMIN 1.3 g/dL (3.4-5.0); BILIRUBIN - TOTAL 0.43 mg/dL (0.2-1.3); CARBON DIOXIDE 16.2 mmol/L (21.0-32.0); CREATININE - SERUM 1.9 mg/dL (0.6-1.3); MAGNESIUM - SERUM 1.7 mg/dL (1.8-2.4); PHOSPHOROUS 1.8 mg/dL (2.5-4.9); POTASSIUM - SERUM 3.6 mmol/L (3.5-5.1)
[2020-07-20 06:30] LABS: ANION GAP 14.4 mmol/L (8-16); CALCIUM 6.3 mg/dL (8.5-10.1)
[2020-07-20 07:56] VITALS: BP 128/64
[2020-07-20 11:19] VITALS: BP 124/70
--- NOTE | 2020-07-20 15:04 | NUR ---
TITO WITH HOSPICE TO COME TO DESK AND TELL US THAT THEIR BEDS ARE FULL AND D/C CAN NOT BE TILL TOMORROW. I CALLED WOOD HEEL FITTER MACHINE, KAYLEE AND TOLD HER. TITO STATES SHE SPOKE TO THE FAMILY AND TOLD THEM. HEART MONITOR IS TURNED IN TO ICU.
--- NOTE | 2020-07-20 15:58 | MORECARE ---
CASE MANAGEMENT DISCHARGE SUMMARY PATIENT: MARTHA ALMARAZ UNIT: [id number] ADM DATE: 07/09/20 AGE: 84 : 34 SEX: M ROOM/BED: D.8275 AUTHOR: THEODORE,DOC PHYSICIAN: REFERRING PHYSICIAN: PREM ANGULO MD DATE OF SERVICE: 07/20/20 Case Management Discharge Planning Summary COMMENTS ENTERED DATE: 07/20/20 15:48 CT COMMENT TYPE: Discharge Planning REVIEWER: Carol Rodgers from [facility] states would like patient transferred to [facility] to their hospice unit and has signed hospice paper work. Vishal states they do not have a bed today, but will have one in am and will need ambulance transfer. Accepting physician is Dr. Osullivan. Report to be called to [phone]. I have informed Johanne of this. ENTERED DATE: 07/19/20 16:28 CT COMMENT TYPE: Discharge Planning REVIEWER: Carol Diaz CM met with patient and today and they agree on hospice. Spouse would like to stay inpatient hospital if possible. DEVI for [facility] signed and for [place], [place] or [place]. [place] does not do hospice, only comfort care. [place] does not do hospice either. I faxed referral to [place]. Vishal ([facility]) visited with spouse and patient. Spouse would like Vishal to return when patient's sister is here tomorrow. Vishal states the patient's spouse states first choice would be to go to [facility] for inpatient hospice. CM will continue to follow and assist with discharge planning/needs. ENTERED DATE: 07/19/20 13:49 CT COMMENT TYPE: Discharge Planning REVIEWER: Carol Serrano called from [place] and states they do not have hospice at their facility and if patient did not survive 30 days, they would be responsible for the charge. I spoke with patient's and she would like a referral to [place]. CM faxed referral to [place]. ENTERED DATE: 07/19/20 11:30 CT COMMENT TYPE: Discharge Planning REVIEWER: Carol Diaz CM MET WITH PATIENT AND HIS IN THE ROOM. [facility] FOR [facility] FIRST CHOICE. I SPOKE WITH JJ AT [facility] AND [place] AT [facility] AND [facility] AND CLINICAL FAXED. SECOND CHOICE IS [facility] [facility] [place] OR [place]. CM WILL CONTINUE TO FOLLOW AND ASSIST WITH DISCHARGE PLANNING/NEEDS DCP REVIEW SUMMARY ANTICIPATED D/C DATE: EXPECTED LOS : CASE STATUS: DCP Initiated INITIAL REVIEW: 07/19/2020 INITIAL REVIEWER: Carol Diaz FINAL DISCHARGE DISPOSITION: : FINAL REVIEWER: FINAL REVIEW DATE: DCP Focus Questions & Answers - Added on: QUESTION: ANSWER : PATIENT: MARTHA ALMARAZ ENCOUNTER: [id number] MEDICAL RECORD#: [id number] ADMISSION DATE: 07/09/2020 DISCHARGE DATE: ATTENDING MD: PREM BONILLA : AGE: 84 MARITAL STATUS: M DC PLAN ID: [id number] FACILITY: [facility] PRINTED ON: 07/20/20 15:57 CT All edits/amendments must be made on the electronic document DICTATION DATE: 07/20/201556 RETIREMENT OFFICER: AUBREY 07/20/201556 RPT#: [id number] DC DATE: STATUS: ADM IN [facility] [address] [place] [address] END OF REPORT
--- NOTE | 2020-07-20 19:24 | MORECARE ---
CASE MANAGEMENT DISCHARGE SUMMARY PATIENT: MARTHA ALMARAZ UNIT: [id number] ADM DATE: 07/09/20 AGE: 84 : 34 SEX: M ROOM/BED: D.0555 AUTHOR: THEODORE,DOC PHYSICIAN: REFERRING PHYSICIAN: PREM ANGULO MD DATE OF SERVICE: 07/20/20 Case Management Discharge Planning Summary COMMENTS ENTERED DATE: 07/20/20 15:48 CT COMMENT TYPE: Discharge Planning REVIEWER: Carol Rodgers from [facility] states would like patient transferred to [facility] to their hospice unit and has signed hospice paper work. Vishal states they do not have a bed today, but will have one in am and will need ambulance transfer. Accepting physician is Dr. Osullivan. Report to be called to [phone]. I have informed Johanne of this. ENTERED DATE: 07/19/20 16:28 CT COMMENT TYPE: Discharge Planning REVIEWER: Carol Diaz CM met with patient and today and they agree on hospice. Spouse would like to stay inpatient hospital if possible. DEVI for [facility] signed and for [place], [place] or [place]. [place] does not do hospice, only comfort care. [place] does not do hospice either. I faxed referral to [place]. Vishal ([facility]) visited with spouse and patient. Spouse would like Vishal to return when patient's sister is here tomorrow. Vishal states the patient's spouse states first choice would be to go to [facility] for inpatient hospice. CM will continue to follow and assist with discharge planning/needs. ENTERED DATE: 07/19/20 13:49 CT COMMENT TYPE: Discharge Planning REVIEWER: Carol Serrano called from [place] and states they do not have hospice at their facility and if patient did not survive 30 days, they would be responsible for the charge. I spoke with patient's and she would like a referral to [place]. CM faxed referral to [place]. ENTERED DATE: 07/19/20 11:30 CT COMMENT TYPE: Discharge Planning REVIEWER: Carol Diaz CM MET WITH PATIENT AND HIS IN THE ROOM. DEVI FOR [facility] FIRST CHOICE. I SPOKE WITH JJ AT [facility] AND [place] AT [facility] AND [facility] FAXED. SECOND CHOICE IS [place] [facility] [place] OR [place]. CM WILL CONTINUE TO FOLLOW AND ASSIST WITH DISCHARGE PLANNING/NEEDS DCP REVIEW SUMMARY ANTICIPATED D/C DATE: EXPECTED LOS : CASE STATUS: DCP Initiated INITIAL REVIEW: 07/19/2020 INITIAL REVIEWER: Carol Diaz FINAL DISCHARGE DISPOSITION: : FINAL REVIEWER: FINAL REVIEW DATE: DCP Focus Questions & Answers - Added on: QUESTION: ANSWER : PATIENT: MARTHA ALMARAZ ENCOUNTER: [id number] MEDICAL RECORD#: [id number] ADMISSION DATE: 07/09/2020 DISCHARGE DATE: ATTENDING MD: PREM BONILLA : AGE: 84 MARITAL STATUS: M DC PLAN ID: [id number] FACILITY: [facility] PRINTED ON: 07/20/20 19:24 CT All edits/amendments must be made on the electronic document DICTATION DATE: 07/20/201923 FOOT DOCTOR: AUBREY 07/20/201923 RPT#: [id number] DC DATE: STATUS: ADM IN [facility] [address] [place] [address] END OF REPORT
[2020-07-20 20:00] VITALS: BP 127/61
--- NOTE | 2020-07-20 20:04 | NUR ---
REPORT RECEIVED, WILL CONT POC. PT A&O, LYING IN BED WITH AT BEDSIDE. NO S/S OF DISTRESS OBSERVED. RR EVEN & UNLABORED ON RA. BED LOCKED AND LOWERED, CL IN REACH. ASSESSMENT COMPLETED AT THIS TIME. WILL CONT POC.
[2020-07-21 04:00] VITALS: BP 110/60
[2020-07-21 09:57] VITALS: BP 134/75
--- NOTE | 2020-07-21 12:29 | NUR ---
1015-REPORT CALLED TO LAURA AT [facility] IN HOSPICE. FAMILY & PT UPDATED ON DISCHARGE STATUS. PERSONAL BELONGINGS PACKED UP. 1200--TRANSPORT HERE. ASSISTED WITH PT TRANSFER TO [facility]. WISHED WELL. WAS GIVEN PAIN MED PRIOR TO THEIR ARRIVAL.
--- NOTE | 2020-07-21 12:39 | NUR ---
Nutrition Follow-up: Poor PO intake. Being d/c'd to hospice today. Diet: Regular, Mech Soft, Ensure TID No new wt; last wt: 133# (07/17) Labs reviewed Meds noted: Lomotil, Questran, Megace, Florajen, Protonix, Oscal, electrolyte protocol -RD will follow up 07/25 if pt still admitted.
--- NOTE | 2020-07-22 09:34 | MORECARE ---
CASE MANAGEMENT DISCHARGE SUMMARY PATIENT: MARTHA ALMARAZ UNIT: [id number] ADM DATE: 07/09/20 AGE: 84 : 34 SEX: M ROOM/BED: D.9205 AUTHOR: THEODORE,DOC PHYSICIAN: REFERRING PHYSICIAN: PREM ANGULO MD DATE OF SERVICE: 07/22/20 Case Management Discharge Planning Summary COMMENTS ENTERED DATE: 07/20/20 15:48 CT COMMENT TYPE: Discharge Planning REVIEWER: Carol Rodgers from [facility] states would like patient transferred to [facility] to their hospice unit and has signed hospice paper work. Vishal states they do not have a bed today, but will have one in am and will need ambulance transfer. Accepting physician is Dr. Osullivan. Report to be called to [phone]. I have informed Johanne of this. ENTERED DATE: 07/19/20 16:28 CT COMMENT TYPE: Discharge Planning REVIEWER: Carol Diaz CM met with patient and today and they agree on hospice. Spouse would like to stay inpatient hospital if possible. DEVI for [facility] signed and for [place], [place] or [place]. [place] does not do hospice, only comfort care. [place] does not do hospice either. I faxed referral to [place]. Vishal ([facility]) visited with spouse and patient. Spouse would like Vishal to return when patient's sister is here tomorrow. Vishal states the patient's spouse states first choice would be to go to [facility] for inpatient hospice. CM will continue to follow and assist with discharge planning/needs. ENTERED DATE: 07/19/20 13:49 CT COMMENT TYPE: Discharge Planning REVIEWER: Carol Serrano called from [place] and states they do not have hospice at their facility and if patient did not survive 30 days, they would be responsible for the charge. I spoke with patient's and she would like a referral to [place]. CM faxed referral to [place]. ENTERED DATE: 07/19/20 11:30 CT COMMENT TYPE: Discharge Planning REVIEWER: Carol Diaz CM MET WITH PATIENT AND HIS IN THE ROOM. [facility] FOR [facility] FIRST CHOICE. I SPOKE WITH JJ AT [facility] AND [place] AT [facility] AND CLINICAL FAXED. SECOND CHOICE IS [place] [facility] [place]. CM WILL CONTINUE TO FOLLOW AND ASSIST WITH DISCHARGE PLANNING/NEEDS DCP REVIEW SUMMARY ANTICIPATED D/C DATE: EXPECTED LOS : CASE STATUS: DCP Initiated INITIAL REVIEW: 07/19/2020 INITIAL REVIEWER: Carol Diaz FINAL DISCHARGE DISPOSITION: : FINAL REVIEWER: FINAL REVIEW DATE: DCP Focus Questions & Answers - Added on: QUESTION: ANSWER : PATIENT: MARTHA ALMARAZ ENCOUNTER: [id number] MEDICAL RECORD#: [id number] ADMISSION DATE: 07/09/2020 DISCHARGE DATE: 07/21/2020 ATTENDING MD: PREM BONILLA : AGE: 84 MARITAL STATUS: M DC PLAN ID: [id number] FACILITY: [facility] PRINTED ON: 07/22/20 9:34 CT All edits/amendments must be made on the electronic document DICTATION DATE: 07/22/20932 DORMITORY SUPERVISOR: DM 07/22/20932 RPT#: [id number] DC DATE:07/21/20 STATUS: DIS IN [facility] [address] [place] [address] END OF REPORT
--- NOTE | 2020-07-23 16:44 | MORECARE ---
CASE MANAGEMENT DISCHARGE SUMMARY PATIENT: MARTHA ALMARAZ UNIT: [id number] ADM DATE: 07/09/20 AGE: 84 : 34 SEX: M ROOM/BED: D.9610 AUTHOR: THEODORE,DOC PHYSICIAN: REFERRING PHYSICIAN: PREM ANGULO MD DATE OF SERVICE: 07/23/20 Case Management Discharge Planning Summary CT Patient Name: MARTHA ALMARAZ Attending MD : PREM HEARN Medical Record: [id number] Encounter : [id number] Facility : [address] [place] [address] Admission Date : 122:48 Center Discharge Date : 07/21/2020 [facility] [place] [address] Date of : DC Plan ID : [id number] Age/Sex/Martia : 84/ M/M Printed on : 07/23/20 16:43 CT DCP Review Details Anticipated D/C: Expected LOS : 0 Case Status : COMPLET - Initial Reviewe: [id number] - Carol Diaz Initial Review: 07/19/2020 Planned Disposi: [facility] - [facility] ([facility] Final Discharge: [facility] - [facility] ([facility] Final Reviewer : [id number] : Carol Diaz Final Review : 07/23/[address] Entered Date Type Reviewer 07/20/20 15:48 CT Discharge Planning Carol Diaz Comment Vishal from [facility] states would like patient transferred to [facility] to their hospice unit and has signed hospice paper work. Vishal states they do not have a bed today, but will have one in am and will need ambulance transfer. Accepting physician is Dr. Osullivan. Report to be called to [phone]. I have informed Johanne of this. 07/19/20 16:28 CT Discharge Planning Carol Diaz Comment CM met with patient and today and they agree on hospice. Spouse would like to stay inpatient hospital if possible. DEVI for [facility] signed and for [place], [place] or [place]. [place] does not do hospice, only comfort care. [place] does not do hospice either. I faxed referral to [place]. Vishal ([facility]) visited with spouse and patient. Spouse would like Vishal to return when patient's sister is here tomorrow. Vishal states the patient's spouse states first choice would be to go to [facility] for inpatient hospice. CM will continue to follow and assist with discharge planning/needs. 07/19/20 13:49 CT Discharge Planning Carol Diaz Comment Maggie called from [facility] and states they do not have hospice at their facility and if patient did not survive 30 days, they would be responsible for the charge. I spoke with patient's and she would like a referral to [place]. CM faxed referral to [place]. 07/19/20 11:30 CT Discharge Planning Carol Emily Comment CM MET WITH PATIENT AND HIS IN THE ROOM. [facility] FOR [facility] FIRST CHOICE. I SPOKE WITH JJ AT [facility] AND [place] AT [facility] AND REHAB AND CLINICAL FAXED. SECOND CHOICE IS [place] OR [place]. CM WILL CONTINUE TO FOLLOW AND ASSIST WITH DISCHARGE PLANNING/NEEDS DCP Focus Questions & Answers [facility] MARTHA ALMARAZ MR#: [id number] /Age/Sex/[id number]-Zyv-32 /84/M /M Attending Physician Name: POOJA ANGULO [id number] Patient Account:[id number] [facility] Page -1 of 1 All edits/amendments must be made on the electronic document DICTATION DATE: 07/23/201642 SR. UNIX SYSTEM ADMINISTRATOR: AUBREY 07/23/201642 RPT#: [id number] DC DATE:07/21/20 STATUS: DIS IN [facility] [address] [place] [address] END OF REPORT
== END 2020-07-21 12:00 | disposition hospice, inpatient (51) | DRG 871 ==
LOC: D.ER 21:31 → D.M2 22:48
PROVIDERS: Emergency Medicine; Family Medicine; Internal Medicine Medical Oncology; ADMIT Family Medicine; ATTEND Family Medicine
DX: A41.9 Sepsis, unspecified organism (principal); E43 Unspecified severe protein-calorie malnutrition; N17.0 Acute kidney failure with tubular necrosis; E87.1 Hypo-osmolality and hyponatremia; Z68.1 Body mass index [BMI] 19.9 or less, adult; B37.49 Other urogenital candidiasis; E87.0 Hyperosmolality and hypernatremia; I95.1 Orthostatic hypotension; W19.XXXA Unspecified fall, initial encounter; E87.6 Hypokalemia; R73.9 Hyperglycemia, unspecified; C61 Malignant neoplasm of prostate; D63.1 Anemia in chronic kidney disease; F32.9 Major depressive disorder, single episode, unspecified; G89.3 Neoplasm related pain (acute) (chronic); Z85.118 Personal history of other malignant neoplasm of bronchus and lung; Z86.39 Personal history of other endocrine, nutritional and metabolic disease